=== PATIENT | male | born 1950 | race Caucasian/White ===

== ENCOUNTER 2017-01-14 05:44 | Inpatient (IN) | payer OTHER ==
[2017-01-14] MEDS ORDERED: morphINE PF 5 MG/10 ML INJ IT ONE (06:05)
[2017-01-14] MEDS ORDERED: GABAPENTIN 100 MG CAP PO ONE (06:05)
[2017-01-14] MEDS ORDERED: morphINE SR 15 MG TAB PO ONE (06:05)
[2017-01-14] MEDS ORDERED: ACETAMINOPHEN 500 MG TAB PO ONE (06:05)
[2017-01-14] MEDS ORDERED: ceFAZolin 2 GM/DEXTROSE 100 ML IV ONE (06:05)
[2017-01-14] MEDS ORDERED: LR 1,000 ML IV ONE (06:06)
[2017-01-14] MEDS ORDERED: LIDOCAINE 1% 2 ML INJ ID PRN (06:06)
--- NOTE | 2017-01-14 06:22 | PDHPUP ---
History & Physical Update H&P update statement: This history and physical update is based on an assessment of the patient which was completed after admission or registration (within 24 hours), but prior to the surgery/procedure. H&P update: H&P reviewed & patient examined, no change in patient's condition since H&P completed (Patient has been consented and his site marked for a posterior L4/5 laminectomy and TLIF/PSF. All questions answered.)
[2017-01-14] MEDS ORDERED: GABAPENTIN 300 MG CAP PO ONE (06:30)
[2017-01-14] MEDS ORDERED: BACITRACIN 50,000 UNITS/10 ML SYR IRR ONE (06:43)
[2017-01-14] MEDS ORDERED: CHLORHEXIDINE GLUC HIBICLENS 118 ML BTL TP ONE (06:43)
[2017-01-14] MEDS ORDERED: THROMBIN (BOVINE) 20,000 UNIT VIAL TP ONE ×2 (06:43→07:18)
[2017-01-14] MEDS ORDERED: BUPIVACAINE 0.25% 30 ML SDV ONE (06:43)
[2017-01-14] MEDS ORDERED: METOCLOPRAMIDE 10 MG/2 ML VIAL ONE (07:07)
[2017-01-14] MEDS ORDERED: ROCURONIUM 50 MG/5 ML VIAL ONE ×3 (07:07→08:28)
[2017-01-14] MEDS ORDERED: DEXAMETHASONE 4 MG/ML VIAL ONE ×2 (07:07)
[2017-01-14] MEDS ORDERED: PROPOFOL/EMULSION 500 MG/50 ML BOTTLE IV ONE ×2 (07:07→08:40)
[2017-01-14] MEDS ORDERED: MIDAZOLAM 2 MG/2 ML VIAL ONE (07:07)
[2017-01-14] MEDS ORDERED: PHENYLEPHRINE 10 MG/ML SDV ONE (07:07)
[2017-01-14] MEDS ORDERED: LIDOCAINE 2% 100 MG/5 ML SYR ONE (07:08)
--- NOTE | 2017-01-14 08:00 | PDANEPAE ---
ANE Past Medical History - Cardiovascular History Hx Hypertension: Yes Hx Arrhythmias: No Hx Chest Pain: No Hx Coronary Artery / Peripheral Vascular Disease: No Hx CHF / Valvular Disease: No Hx Palpitations: No Cardiovascular History Comment: pcp monitors bp meds. bp has been increasing recently with pain and back issues - Pulmonary History Hx COPD: No Hx Asthma/Reactive Airway Disease: No Hx Recent Upper Respiratory Infection: No Hx Oxygen in Use at Home: No Hx Sleep Apnea: Yes Sleep Apnea Screening Result - Last Documented: Positive Pulmonary History Comment: dana triggers - Neurologic History Hx Cerebrovascular Accident: No Hx Seizures: No Hx Dementia: No Neurologic History Comment: numbness to legs bilaterally- severe sciatic and nerve pain - Endocrine History Hx Diabetes: No - Renal History Hx Renal Disorders: No - Liver History Hx Hepatic Disorders: No - Neurological & Psychiatric Hx Hx Neurological and Psychiatric Disorders: Yes Neurological / Psychiatric History Comment: anxiety for years - Cancer History Hx Cancer: No - Congenital Disorder History Hx Congenital Disorders: No - GI History Hx Gastrointestinal Disorders: Yes Gastrointestinal History Comment: duodenum ulcer- no difficulties - Other Health History Other Health History: wears reading glasses - Chronic Pain History Chronic Pain: Yes (sciatic and nerve pain) - Surgical History Prior Surgeries: 10 or 15 yrs ago ruptured disc to back. bilateral elbow surgeries. knee surgeries. testicle removed at 12 yo d/t trauma. right shoulder surgery for dislocation and bicep tendon repair ANE Review of Systems - Exercise capacity METS (RN): 3 METS ANE Patient History - Allergies Allergies/Adverse Reactions: oxycodone Allergy (Verified 12/26/16 11:22) Itching - Home Medications Home Medications: Ascorbic Acid [Vitamin C 500 mg (*)] 1,000 mg PO DAILY 12/20/16 [Last Taken ] Atenolol [Tenormin 100 mg (*)] 100 mg PO HS 12/20/16 [Last Taken 01/13/17 21:30] Herbals/Supplements -Info Only 1 ea PO DAILY 12/20/16 [Last Taken 01/07/17] Ibuprofen [Motrin (*)] 400 mg PO Q4-6PRN PRN 12/20/16 [Last Taken 01/07/17] Primidone 100 mg PO DAILY 12/20/16 [Last Taken 01/13/17 05:00] Simvastatin 40 mg PO HS 12/20/16 [Last Taken 01/13/17 21:30] buPROPion SR [Wellbutrin 150mg SR (*)] 150 mg PO BID 12/20/16 [Last Taken 05:00] diphenhydrAMINE [Benadryl 50 MG (*)] 50 mg PO HS PRN 12/20/16 [Last Taken ] traMADol [Ultram 50 mg (*)] 50 - 100 mg PO Q4H PRN 12/20/16 [Last Taken 01/13/17 ] - NPO status NPO Since - Liquids (Date): 01/13/17 NPO Since - Liquids (Time): 18:00 NPO Since - Solids (Date): 01/13/17 NPO Since - Solids (Time): 18:00 - Smoking Hx Smoking Status: Former smoker - Family Anes Hx Family Hx Anesthesia Complications: none ANE Labs/Vital Signs - Vital Signs Blood Pressure: 162/88 Heart Rate: 52 Respiratory Rate: 16 O2 Sat (%): 97 Height: 180.34 cm Weight: 95.254 kg ANE Physical Exam - Airway Neck exam: spinal fusion Mallampati Score: Class 2 Mouth exam: normal dental/mouth exam - Pulmonary Pulmonary: no respiratory distress - Cardiovascular Cardiovascular: regular rate and rhythym - ASA Status ASA Status: II ANE Anesthesia Plan Anesthesia Plan: general endotracheal anesthesia Urgent/Emergent Case: Yulissa marcus completed preop but documented later for safe timely pt care
[2017-01-14] MEDS ORDERED: SUGAMMADEX SODIUM 200 MG/2 ML VIAL IVP ONE (08:40)
[2017-01-14] MEDS ORDERED: morphINE PF 5 MG/10 ML INJ ONE (08:58)
[2017-01-14] MEDS ORDERED: diphenhydrAMINE 50 MG CAP PO PRN (10:43)
[2017-01-14] MEDS ORDERED: POLYETHYLENE GLYCOL 3350 17 GM PKT PO PRN (10:44)
[2017-01-14] MEDS ORDERED: LACTULOSE 20 GM/30 ML UDCUP PO PRN (10:44)
[2017-01-14] MEDS ORDERED: MAGNESIUM HYDROXIDE 30 ML UDCUP PO PRN (10:44)
[2017-01-14] MEDS ORDERED: HYDROmorphONE/DILAUDID 1 MG/ML SYR IVP PRN (10:44)
[2017-01-14] MEDS ORDERED: BISACODYL 10 MG SUPP PR PRN (10:44)
[2017-01-14] MEDS ORDERED: ONDANSETRON 4 MG/2 ML VIAL IVP PRN ×2 (10:44→10:46)
[2017-01-14] MEDS ORDERED: diphenhydrAMINE 25 MG CAP PO PRN (10:44)
[2017-01-14] MEDS ORDERED: ONDANSETRON DISINTEGRATING 4 MG TAB PO PRN (10:44)
[2017-01-14] MEDS ORDERED: NALOXONE HCL 0.4 MG/ML INJ IVP PRN (10:46)
[2017-01-14] MEDS ORDERED: ACETAMINOPHEN 500 MG TAB PO PRN (10:46)
[2017-01-14] MEDS ORDERED: LR 500 ML IV PRN (10:46)
[2017-01-14] MEDS ORDERED: MEPERIDINE 25 MG/ML SYR IVP PRN (10:46)
[2017-01-14] MEDS ORDERED: ALBUTEROL 3 ML DEYVIAL IH PRN (10:46)
--- NOTE | 2017-01-14 10:47 | POSTANESTH ---
Post Anesthetic Evaluation Cardiovascular Status: Similar to Pre-Op Cond Respiratory Status: Similar to Pre-op Cond. Level of Consciousness/Mental Status: Can Participate in Eval Pain Control: Adequate, Prn Tx Ordered Nausea/Vomiting Control: Adequate, Prn Tx Ordered Complications Possibly Related to Anesthesia: None Noted
--- NOTE | 2017-01-14 10:55 | POSTOPPROG ---
Post Op Note Date of Operation: 01/14/17 Surgeon: Juan Carlos Reyes Track Announcer: Karri Polanco PA-C Anesthesiologist: Artur Anesthesia: GET(General Endotracheal) Pre-op Diagnosis: lumbar degenerative disc disease, radiculopathy, stenosis Post-op Diagnosis: same Indication: pain, spinal cord compression Procedure: L45 laminectomy, TLIF, bilateral foraminotomies, PSF Findings: Please see dictation Inf/Abcess present in the surg proc area at time of surgery?: No Depth: Organ Space EBL: 50-100 Complications: none Drains: Arslan Solis Specimen(s): none PA Addendum - Addendum .: S: Pt in PACU, states back is uncomfortable. Denies leg pain. O: AAOx3 NAD VSS MAEx4 Motor 5/5 BUE/BLE +LT Incision dressed JPx1 Stanford in A: 67 yo M s/p L45 laminectomy, bilateral foraminotomies, TLIF, PSF P: PT/OT Brace when OOB TEDs, SCDs, lovenox POD#1 Pain management Post op xrays pending Call NS with any issues D/w Dr Reyes
[2017-01-14] MEDS ORDERED: fentaNYL 100 MCG/2 ML INJ ONE (11:41)
[2017-01-14] MEDS: fentaNYL 100 MCG/2 ML INJ IVP PRN ×2 (11:43→12:06)
--- NOTE | 2017-01-14 13:57 | GOP ---
[f rep st] OPERATIVE REPORT DATE OF OPERATION: 01/14/2017 SURGEON: Juan Carlos Reyes MD JEWELRY DRILLING MACHINE OPERATOR: Lizbeth Polanco PA-C. ANESTHESIA: General. PREOPERATIVE DIAGNOSIS: 1. L4-L5 spinal stenosis with spondylosis and bilateral recess and foraminal stenosis. 2. Low back pain and lower extremity radiculopathy. 3. Treatment refractory to medical management. POSTOPERATIVE DIAGNOSIS: 1. L4-L5 spinal stenosis with spondylosis and bilateral recess and foraminal stenosis. 2. Low back pain and lower extremity radiculopathy. 3. Treatment refractory medial management. PROCEDURE PERFORMED: 1. Posterior arthrodesis with approach to L4-L5. 2. Posterolateral fusion with bilateral pedicle screw placement at L4 and L5 from the [employer] 4.75 Solera system. 3. Posterolateral fusion on the left with morselized autograft and allograft. 4. Decompressive laminectomy, L4-L5, with bilateral medial facetectomies and foraminotomies. 5. Right-sided L4-L5 transforaminal lumbar interbody fusion with a 9 x 28 mm titanium PEEK Elevate cage filled with morselized autograft and allograft. 6. Use of intraoperative 3D Stealth navigation. 7. Use of intraoperative fluoroscopy, less than 1 hour physician time. 8. Use of neuromonitoring. 9. Use of operating microscope. 10. Injection of preservative-free intrathecal narcotics. FINDINGS: per imaging SPECIMENS: None. ESTIMATED BLOOD LOSS: 100 mL. INDICATIONS: The patient is a 67-year-old gentleman who unfortunately has been suffering from bilateral lower extremity claudication and radiculopathy. He had evidence of severe spinal stenosis L4-5 with bilateral lateral recess and foraminal stenosis. After failing nonoperative interventions, and after discussion of risks, benefits, and treatment alternatives, we decided to proceed forth with surgery as described above. DESCRIPTION OF PROCEDURE: Patient was brought to the operating theater and underwent general endotracheal anesthesia without complication. He had Venodynes, TAMMIE hose and the appropriate lines placed by Anesthesia. He was flipped prone onto the Arslan table and all bony prominences inspected and padded. The lower lumbar region was prepped and draped in the usual sterile surgical fashion. A time-out was completed per protocol and the patient received antibiotics within 1 hour of incision. Using lateral fluoroscopy and a spinal needle, we picked our entry point to the L4-L5 level. This was marked in the midline and the incision then infiltrated with Marcaine with epinephrine. The incision was taken down initially with the scalpel blade, and then using the monopolar taken down the midline through the lumbodorsal fascia, and a subperiosteal dissection carried out to the transverse processes of L4 and L5 bilaterally. Deep retractors were placed to maintain our exposure. We attached the 3D Stealth navigation clamp to the spinous process of L5 and completed a 3D Stealth navigation spin. Using 3D Stealth navigation, we placed the commercial airline pilot holes for the bilateral pedicle screws at L4 and L5. All holes were manually palpated with no evidence of any cortical breaches. We then tapped and placed 6.5 x 50 mm screws bilaterally into L4 and L5 from the Alaris Royaltyra system. Another 3D Stealth navigation spin demonstrated good placement of the hardware. At this point, the microscope was brought into the field to assist with microscopic dissection and to maintain illumination and magnification. Using a combination of the bur tip on the drill, Kerrison punches, and a Leksell rongeur , we completed a decompressive laminectomy at L4-L5, with bilateral foraminotomies L4-5. We resected the pars on the right side between L4-5 and distracted the interspace. We completed a right-sided L4-5 diskectomy and prepared the cartilaginous endplates. We measured the interbody space and placed a 9 x 28 mm titanium Peek Elevate cage filled with morselized autograft and allograft anteriorly toward the midline. We packed additional morcellized autograft in the disk space interbody fusion. We let down the distraction and decorticated the bone on the left side between L4-5. We placed 2 lordotic rods into the heads of the screws between L4-5 and secured them down with cap screws , which were then tightened per the automation qa tester's setting. We irrigated the wound copiously with bacitracin irrigation, placed morselized autograft and allograft on the left side between L4-5 for the posterolateral fusion. We injected preservative-free intrathecal narcotics and placed a drain in the subfascial space. The wound was then closed in multiple layers using Vicryl sutures in the deep layers and Dermabond for the skin. The patient's wounds were dressed sterilely. He was then flipped supine onto the transport cart, where he was awakened, extubated, and taken to the recovery room in stable condition. There were no complications and no noted changes on neuromonitoring throughout the procedure. COMPLICATIONS: None. /[id number]/MODL MTDD
[2017-01-14] MEDS: NS 1,000 ML IV SCH (14:31)
[2017-01-14] MEDS: ACETAMINOPHEN 500 MG TAB PO SCH ×2 (14:32→20:48)
[2017-01-14] MEDS: ceFAZolin 2 GM/DEXTROSE 100 ML IV SCH ×2 (14:33→23:19)
--- NOTE | 2017-01-14 15:01 | ASMTCASEMG ---
Living Arrangements What is your living arrangement? Who do you live Answers: With Spouse with? Type Of Residence What kind of residence do you live in? Answers: House Stairs in Home Environment Answers: Yes Discharge Plan Comments Coordination Status Comments Notes: Pt is s/p lumbar surgery for spinal stenosis. Hx Depression. PT/OT pending. CM will follow for any d/c needs. Date Signed: 01/14/2017 03:00 PM Electronically Signed By:Germania Muller
[2017-01-14] MEDS: FAMOTIDINE 20 MG TAB PO SCH (20:48)
[2017-01-14] MEDS: ATENOLOL 100 MG TAB PO SCH (20:48)
[2017-01-14] MEDS: buPROPion SR 150 MG TAB PO SCH (20:48)
[2017-01-14] MEDS: ATORVASTATIN CALCIUM 20 MG TAB PO SCH (20:48)
[2017-01-14] MEDS: SENNOSIDES/DOCUSATE SODIUM TAB PO SCH (20:48)
[2017-01-14] MEDS ORDERED: SIMVASTATIN 40 MG PO SCH (21:00)
[2017-01-15] MEDS: NS 1,000 ML IV SCH (05:00)
[2017-01-15] MEDS: ACETAMINOPHEN 500 MG TAB PO SCH ×3 (05:00→20:38)
--- NOTE | 2017-01-15 07:06 | NEUSURGPN ---
Date of Surgery: 01/14/17 Post Op Day: 1 Assessment/Plan: 67 yo male s/p TLIF at L4/5 - neuro stable - pain control - PT/OT - wear brace when out of bed - postop L-spine x-rays pending - DALILA drain x 1, will likely remove tomorrow - Dispo: home tomorrow if continues to progress well Subjective: Right thigh numbness improved compared to prior to surgery. Having localized back pain. Objective: Awake. Alert. Muscle strength full at 5/5 Sensation intact Catheter Insertion Date: 01/14/17 - Physician Discussed Patient with : Eric Neurosurgery Physical Exam - Vitals, I&O, Labs I and O 01/14/17 01/15/17 01/16/17 05:59 05:59 05:59 Intake Total 3952 Output Total 4125 Balance -173 Weight 95.254 kg Intake: Oral (ml) 1170 IV Intake (ml) 1570 IV Infused (ml) 1212 Ns 1,000 ml @ 75 mls/hr 1002 IV CONT MAGDI Rx#: [id number] ceFAZolin 2 GM/DEXTROSE 210 100 ml @ 200 mls/hr IV Q8H MAGDI Rx#:[id number] Output: Urine (ml) 3800 Catheter 3800 Estimated Blood Loss (ml) 100 DALILA Drain Output (ml) 225 Left Back 100 Posterior Back 125 Other: Intake Quantity Yes Sufficient Number of Voids Catheter 1 Vital Signs Temp Pulse Resp BP Pulse Ox 36.6 C 53 L 16 122/61 H 93 01/15/17 04:00 01/15/17 04:00 01/15/17 04:00 01/15/17 04:00 01/15/17 04:00 ICD10 Worksheet Patient Problems: Problems Problem Status Onset Lumbar spondylosis Acute - ICD10 Problem Qualifiers (1) Lumbar spondylosis
[2017-01-15] MEDS: ASCORBIC ACID 500 MG TAB PO SCH (08:51)
[2017-01-15] MEDS: PRIMIDONE 50 MG TAB PO SCH (08:51)
[2017-01-15] MEDS: buPROPion SR 150 MG TAB PO SCH ×2 (08:51→20:38)
[2017-01-15] MEDS: SENNOSIDES/DOCUSATE SODIUM TAB PO SCH ×2 (08:51→20:38)
[2017-01-15] MEDS: FAMOTIDINE 20 MG TAB PO SCH ×2 (08:51→20:38)
[2017-01-15] MEDS: ENOXAPARIN 40 MG/0.4 ML SYR SC SCH (08:52)
--- NOTE | 2017-01-15 14:21 | ASMTCMCOM ---
CM Note CM Note Notes: PT rec outpat, OT rec home. Anticipate pt will d/c when medically stable. CM available for changes/ needs. Date Signed: 01/15/2017 02:21 PM Electronically Signed By:Rhonda Carmichael
[2017-01-15] MEDS: HYDROCODONE/APAP 5/325 TAB PO PRN (17:58)
[2017-01-15] MEDS: METHOCARBAMOL 750 MG TAB PO PRN (20:38)
[2017-01-15] MEDS: ATORVASTATIN CALCIUM 20 MG TAB PO SCH (20:38)
[2017-01-15] MEDS: ATENOLOL 100 MG TAB PO SCH (20:38)
[2017-01-16] MEDS: traMADol 50 MG TAB PO PRN ×3 (04:20→16:47)
[2017-01-16] MEDS: METHOCARBAMOL 750 MG TAB PO PRN ×2 (04:20→09:13)
[2017-01-16] MEDS: ACETAMINOPHEN 500 MG TAB PO SCH ×2 (05:51→13:33)
--- NOTE | 2017-01-16 07:36 | NEUSURGPN ---
Assessment/Plan: 67 yo male s/p TLIF at L4/5 POD#2 - neuro stable - pain control - PT/OT - wear brace when out of bed - postop L-spine x-rays show stable hardware - DALILA drain x 1, will remove today at noon - Dispo: home later today if continues to progress well Subjective: Pt resting in bed, had bad pain overnight but now improved Objective: AAOx3 NAD VSS MAEx4 Motor 5/5 BLE JPx1 +LT Urinary Catheter in Place: No Catheter Insertion Date: 01/14/17 - Physician Discussed Patient with : Eric Neurosurgery Physical Exam - Vitals, I&O, Labs I and O 01/15/17 01/16/17 01/17/17 05:59 05:59 05:59 Intake Total 3952 1436 Output Total 4125 135 Balance -173 1301 Weight 95.254 kg Intake: Oral (ml) 1170 1050 IV Intake (ml) 1570 IV Infused (ml) 1212 386 Ns 1,000 ml @ 75 mls/hr 1002 286 IV CONT MAGDI Rx#: [id number] ceFAZolin 2 GM/DEXTROSE 210 100 100 ml @ 200 mls/hr IV Q8H MAGDI Rx#:[id number] Output: Urine (ml) 3800 Catheter 3800 Estimated Blood Loss (ml) 100 DALILA Drain Output (ml) 225 135 Left Back 100 135 Posterior Back 125 Other: Intake Quantity Yes Yes Sufficient Number of Voids Catheter 1 Toilet 4 Vital Signs Temp Pulse Resp BP Pulse Ox 36.8 C 56 L 18 163/90 H 93 01/16/17 04:00 01/16/17 04:00 01/16/17 04:00 01/16/17 04:00 01/16/17 04:00 ICD10 Worksheet Patient Problems: Problems Problem Status Onset Lumbar spondylosis Acute
[2017-01-16] MEDS: ASCORBIC ACID 500 MG TAB PO SCH (09:02)
[2017-01-16] MEDS: ENOXAPARIN 40 MG/0.4 ML SYR SC SCH (09:02)
[2017-01-16] MEDS: PRIMIDONE 50 MG TAB PO SCH (09:03)
[2017-01-16] MEDS: SENNOSIDES/DOCUSATE SODIUM TAB PO SCH (09:04)
[2017-01-16] MEDS: buPROPion SR 150 MG TAB PO SCH (09:04)
[2017-01-16] MEDS: FAMOTIDINE 20 MG TAB PO SCH (09:05)
[2017-01-16] MEDS: HYDROCODONE/APAP 5/325 TAB PO PRN (10:09)
[2017-01-16 15:30] VITALS: BP 162/82; PULSE 63; RESP 18; TEMP 97.6; O2SAT 96
== END 2017-01-16 17:27 | disposition home or self-care (01) | DRG 460 ==
LOC: F3N 05:44
PROVIDERS: ADMIT Neurological Surgery; ATTEND Neurological Surgery
DX: M51.36 Other intervertebral disc degeneration, lumbar region (principal); M47.26 Other spondylosis with radiculopathy, lumbar region; M48.06 Spinal stenosis, lumbar region; I10 Essential (primary) hypertension; Z87.891 Personal history of nicotine dependence
CPT/HCPCS: 97116-GP; 97161-GP; 97165-GO; 97530-GP; 97535-GO; C1713; G8978-GP-CI; G8979-GP-CI; G8980-GP-CI; G8987-GO-CI; G8987-GO-CJ; G8988-GO-CI; G8989-GO-CI; J0171; J0690; J1100; J1650; J2001; J2250; J2274; J2370; J2704; J2765; J3010

== ENCOUNTER 2017-01-17 21:23 | Observation (INO) | payer OTHER ==
[2017-01-17] MEDS ORDERED: HYDROmorphONE/DILAUDID 1 MG/ML SYR IVP ONE (21:31)
[2017-01-17] MEDS ORDERED: DIAZEPAM 10 MG/2 ML SYR IVP ONE (22:40)
[2017-01-18] MEDS ORDERED: ONDANSETRON DISINTEGRATING 4 MG TAB PO PRN (00:58)
[2017-01-18] MEDS ORDERED: ACETAMINOPHEN 325 MG TAB PO PRN (00:58)
[2017-01-18] MEDS ORDERED: LORazepam 2 MG/ML INJ IVP PRN (00:58)
[2017-01-18] MEDS ORDERED: ONDANSETRON 4 MG/2 ML VIAL IVP PRN (00:58)
--- NOTE | 2017-01-18 01:15 | EDPHY ---
H & P Stated Complaint: back pain Time Seen by Provider: 01/17/17 21:30 HPI/ROS: Chief complaint: Back pain History of present illness: This is a 67-year-old male who presents to the emergency department by EMS for evaluation of back pain. Patient underwent an L4-L5 fusion on Friday of this last week, approximately 5 days ago. He was discharged from hospital on of this last week, approximately 2 days ago. He has been doing well at home until today when pain started to worsen. He did consult with his neurosurgical group he was switched from tramadol and Frederick to tramadol and hydromorphone. However pain has worsened to the point that he cannot move. Pain does radiate down the right leg. He denies other associated signs or symptoms including no fevers, no new trauma, no bowel or bladder dysfunction. Review of systems: A 10 point review of systems was obtained and other than described above was negative - Personal History Current Tetanus/Diphtheria Vaccine: Unsure - Medical/Surgical History Hx Asthma: No Hx Chronic Respiratory Disease: No Hx Diabetes: No Hx Cardiac Disease: Yes Hx Renal Disease: No Hx Cirrhosis: No Hx Alcoholism: No Hx HIV/AIDS: No Hx Splenectomy or Spleen Trauma: No Other PMH: familial tremors, cervical fusion, 2 shoulder surgeries (r), bilateral elbow surgeries, (r) knee 3 surgeries, HTN, hyperlipidemia, degenerative joint disease, depression - Social History Smoking Status: Former smoker - Physical Exam Exam: General Appearance: Alert, appears unwell. Eyes: Pupils equal and round no pallor or injection. ENT, Mouth: Mucous membranes moist. Respiratory: There are no retractions, lungs are clear to auscultation. Cardiovascular: Regular rate and rhythm. Gastrointestinal: Abdomen is soft and non tender, no masses, bowel sounds normal. Neurological: Alert and oriented x4. Strength and sensation intact and symmetrical. Skin: Warm and dry, no rashes. Musculoskeletal: Neck is supple non tender. Extremities are symmetrical, full range of motion. Psychiatric: Patient is oriented X 3, there is no agitation. Constitutional: Initial Vital Signs Temperature (C) 36.7 C 01/17/17 21:32 Heart Rate 72 01/17/17 21:32 Respiratory Rate 18 01/17/17 21:32 O2 Sat (%) 86 L 01/17/17 21:32 O2 Delivery Mode Room Air Allergies/Adverse Reactions: oxycodone Allergy (Verified 01/17/17 21:34) Itching Home Medications: Medication Instructions Recorded Ascorbic Acid [Vitamin C 500 mg 1,000 mg PO DAILY 12/20/16 (*)] Atenolol [Tenormin 100 mg (*)] 100 mg PO HS 12/20/16 Primidone 100 mg PO DAILY 12/20/16 Simvastatin 40 mg PO HS 12/20/16 buPROPion SR [Wellbutrin 150mg SR 150 mg PO BID 12/20/16 (*)] diphenhydrAMINE [Benadryl 50 MG 50 mg PO HS PRN 12/20/16 (*)] Hydrocodone/APAP 5/325 [Frederick 1 - 2 tab PO Q4HRS PRN #90 tab 01/16/17 5/325 (*)] Methocarbamol [Robaxin 750 mg (*)] 750 mg PO QID PRN #60 tab 01/16/17 traMADol [Ultram 50 mg (*)] 50 - 100 mg PO Q4H PRN #90 tab 01/16/17 Medical Decision Making ED Course/Re-evaluation: Patient seen under the supervision of my secondary supervising physician Dr. Miguel Deluca. Patient presents to the emergency department for low back pain after undergoing an L4-L5 fusion approximately 5 days ago. He is having worsening pain at home not controlled on oral pain medicines. Attempts at treating with IV narcotics and benzodiazepines in the emergency room provide minimal relief and he does desaturate with them. I have consulted with his neurosurgical group, Dr. Lambert Scott and his PA. He does not recommend imaging studies. At this time we should only pursue pain management. Patient is admitted to the hospitalist service for pain management. Neurosurgical group will follow along. Differential Diagnosis: Included but not limited to pain post surgery, postop complications including abnormal bleeding, hematoma, abscess formation - Data Points Medications Given: Discontinued Medications Diazepam (Valium Injection) 5 mg IVP EDNOW ONE Stop: 01/17/17 22:41 Last Admin: 01/17/17 22:52 Dose: 5 mg Hydromorphone HCl (Dilaudid) 1 mg IVP EDNOW ONE Stop: 01/17/17 21:32 Last Admin: 01/17/17 21:36 Dose: 1 mg Departure - Departure Disposition: [facility] Inpatient Acute Clinical Impression: Back pain Qualifiers: Back pain location: low back pain Chronicity: acute Back pain laterality: bilateral Sciatica presence: with sciatica Sciatica laterality: sciatica of right side Qualified Code(s): M54.41 - Lumbago with sciatica, right side Condition: Fair
[2017-01-18] MEDS: HYDROmorphONE/DILAUDID 2 MG TAB PO PRN ×6 (01:31→23:02)
[2017-01-18] MEDS: HYDROmorphONE/DILAUDID 1 MG/ML SYR IVP PRN ×4 (01:31→19:52)
--- NOTE | 2017-01-18 05:03 | PDGENHP ---
History and Physical - Chief Complaint Back pain - History of Present Illness 67 yo M with OA and distant hx of blood clots readmitted with uncontrolled back pain after recent back surgery. Patient underwent L4/5 TLIF on 01/14. His post- op course was uncomplicated and he was discharged on 01/16. Less than 24 hours after his arrival at home, he began to experience severe, unrelenting pain involving his hamstrings and buttocks bilaterally. He denies win numbness or weakness. He attempted oral dilaudid, tramadol, and methocarbamol at home with little relief, so he came in to the ED. History Information - Allergies/Home Medication List Allergies/Adverse Reactions: oxycodone Allergy (Verified 01/17/17 21:34) Itching Home Medications: Ascorbic Acid [Vitamin C 500 mg (*)] 1,000 mg PO DAILY 12/20/16 [Last Taken ] Atenolol [Tenormin 100 mg (*)] 100 mg PO HS 12/20/16 [Last Taken 01/13/17 21:30] Primidone 100 mg PO DAILY 12/20/16 [Last Taken 01/13/17 05:00] Simvastatin 40 mg PO HS 12/20/16 [Last Taken 01/13/17 21:30] buPROPion SR [Wellbutrin 150mg SR (*)] 150 mg PO BID 12/20/16 [Last Taken 05:00] diphenhydrAMINE [Benadryl 50 MG (*)] 50 mg PO HS PRN 12/20/16 [Last Taken ] I have personally reviewed and updated: family history, medical history - Past Medical History DVT - Surgical History Reports: spinal surgery - Family History Positive for: CAD Additional family history: DJD - Social History Smoking Status: Former smoker Drug Use: None Review of Systems ROS: 10pt was reviewed & negative except for what was stated in HPI & below Physical Exam Temp Pulse Resp BP Pulse Ox 37.4 C 63 16 200/86 H 94 01/18/17 01:19 01/18/17 01:19 01/18/17 01:19 01/18/17 01:19 01/18/17 01:19 O2 (L/minute) 2 Constitutional: appears nourished, uncomfortable Eyes: PERRL, EOMI Ears, Nose, Mouth, Throat: moist mucous membranes, no oral mucosal ulcers Cardiovascular: regular rate and rhythym, no murmur, rub, or gallop Respiratory: no respiratory distress, clear to auscultation Gastrointestinal: normoactive bowel sounds, soft, non-tender abdomen Neurologic: AAOx3, sensation intact bilaterally, CN II-XII Intact, other (LE strength examination limited by pain, but able to maintain leg lift bilaterally against gravity) Psychiatric: interacting appropriately, not anxious Assessment & Plan Assessment: 67 yo M w/ L4/5 TLIF on 01/14 readmitted with uncontrolled back pain. Plan: 1. Uncontrolled pain - In the setting of L4/5 TLIF on 01/14. Post-operative course was uncomplicated. Discussed case with ED physician Dr. Huitron, who discussed case with Neurosurgery. Neurosurgery requested no additional imaging and recommended admission for pain control. - Dilaudid 4 mg PO q3h PRN, Dilaudid 0.2-0.4 mg q2h; titrate as necessary with low threshold for ALTERATIONS SUPERVISOR - Neurosurgery will see patient in the morning 2. 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 He was on warfarin for some period of time for this but is no longer on any anticoagulation. Diet - Regular Code - Full Ppx - LMWH Dispo - Admit to observation for pain control
[2017-01-18 05:41] LABS: % IMMATURE GRANULYOCYTES 0.4 % (0.0-1.1); ABSOLUTE IMMATURE GRANULOCYTES 0.04 10^3/uL (0.00-0.10); ADD DIFF? NO; ADD MORPH? NO; ADD SCAN? NO; ATYPICAL LYMPHOCYTE FLAG 0 (0-99); FRAGMENT RBC FLAG 0 (0-99); HEMOGLOBIN 11.8 g/dL (13.7-17.5); LEFT SHIFT FLG 0 (0-99); LIPEMIA HEMOLYSIS FLAG 80 (0-99); MEAN CELL HEMOGLOBIN 31.3 pg (27.9-34.1); MEAN CELL HEMOGLOBIN CONCENTR. 33.7 g/dL (32.4-36.7); MEAN CELL VOLUME 92.8 fL (81.5-99.8); MEAN PLATELET VOLUME 10.7 fL (8.7-11.7); PLATELET CLUMPS FLAG 0 (0-99); PLATELET COUNT 201 10^3/uL (150-400); RED BLOOD CELL COUNT 3.77 10^6/uL (4.40-6.38); RED CELL DISTRIBUTION WIDTH 12.4 % (11.5-15.2)
[2017-01-18 05:55] LABS: ANION GAP 12 mEq/L (8-16); CALCIUM 9.1 mg/dL (8.5-10.4); CARBON DIOXIDE 25 mEq/l (22-31); CHLORIDE 99 mEq/L (97-110); CREATININE 0.7 mg/dL (0.7-1.3); GLOMERULAR FILTRATION RATE > 60; GLUCOSE 96 mg/dL (70-100); POTASSIUM 4.3 mEq/L (3.5-5.2); SODIUM 136 mEq/L (134-144)
[2017-01-18] MEDS: ENOXAPARIN 40 MG/0.4 ML SYR SC SCH (08:19)
--- NOTE | 2017-01-18 11:26 | SOAPPROG ---
Downtime Inpatient Late Entry SOAP Note: Mr Leiva has severe back and buttock inguinal pain but excellent leg strength and no loss of sensation. The got acutely worse at home and he was admitted overnight for pain control. This is not unusual for someone with a lumbar fusion. He needs pain medication adjustment and time. We appreciate the help of our hospitalists service who admitted OUR patient last night while we were involved on a emergent traumatic surgery at another hospital. We will continue to follow Mr. Leiva and I suspect he could likely go home tmrw if he does well after adjusting his pain medications. Teresa Scott MD
[2017-01-18] MEDS ORDERED: diphenhydrAMINE 50 MG CAP PO PRN (11:54)
[2017-01-18 12:11] VITALS: RESP 16
--- NOTE | 2017-01-18 12:17 | GCON ---
[f rep st] CONSULTATION NEUROSURGICAL CONSULTATION. DATE OF CONSULTATION: 01/18/2017 REASON FOR CONSULTATION: Unrelenting postoperative low back pain. HISTORY OF PRESENT ILLNESS: The patient is a middle-aged gentleman, who underwent an uncomplicated L4-5 TLIF by my partner, Dr. Reyes, on January 14. He did well, and was discharged home on postop erative day #2, January 16, and made it at home for about 24 hours, and yesterday began to experien ce just unrelenting severe pain in the low back and buttocks bilaterally. There were occasional twi nges down the right leg, but he had no sensory loss or motor loss in his lower extremities. The angel n was unrelenting, despite his attempts to control it at home with Dilaudid, tramadol, and methocarb ivan. He came into the emergency room here at [facility] yesterday, and then attempted to ge t his pain under control with IV medications, and discharge him home. Unfortunately, the pain was u nrelenting and he had to be admitted. He was admitted last night, to the hospitalist service here, to help with his pain control, and he is doing somewhat better today with their help. He denies any weakness in his legs, and has had no fevers or chills, or any other complaints associated with infe ction. PAST MEDICAL HISTORY: Includes lipid abnormality of the blood, and DVT. PAST SURGICAL HISTORY: Includes his spinal surgeries. FAMILY HISTORY: Significant for coronary artery disease. ALLERGIES: Oxycodone, which causes itching. MEDICATIONS: At home he takes atenolol, primidone, simvastatin, bupropion, and Benadryl as needed. He also takes vitamin C, as well as the pain medications. SOCIAL HISTORY: He was a former smoker but no longer is smoking. PHYSICAL EXAM: VITAL SIGNS: His blood pressure this morning is 171/76, heart rate is 61, respirato ry rate 18, saturation 94% on room air. His temperature is 36.9. BACK: His incision was clean, dry, and intact. There was no evidence of leakage from the incision. EXTREMITIES: His lower extremity strength is 5/5 in the tibialis anterior and plantar flexors, and sensation is intact. ASSESSMENT: The patient has had some difficulty with postoperative low back pain, which is not unco mmon following an L4-5 transforaminal lumbar interbody fusion. PLAN: We will adjust his pain medications and try to find a regimen that works best for him. He wi ll likely require another night's stay in the hospital until this can be accomplished. We appreciat e so much the help of the Medicine Service, and would be happy to accept the patient in transfer ont o the Neurosurgery Service as needed, but we do welcome their input in managing his perioperative pa in. /[id number]/MODL
[2017-01-18] MEDS ORDERED: NS 1,000 ML IV ONE (13:29)
[2017-01-18] MEDS ORDERED: PROMETHAZINE HCL 25 MG/ML INJ IVP ONE (13:29)
--- NOTE | 2017-01-18 13:32 | HOSPPROG ---
Hospitalist Progress Note Assessment/Plan: # uncontrolled pain post-op from TLIF 01/14 - cont dilaudid IV and PO; schedule apap; add valium for muscle relaxant effects - Dr Scott involved and agrees # headache - neuro intact, doubt bleed - will give IVF and phenergan, follow closely # anemia 35 mins of direct face to face patient care Subjective: pain 12/26 (was 04/27); ongoing SALAZAR Objective: Vital Signs Temp Pulse Resp BP Pulse Ox 37.0 C 57 L 16 144/82 H 93 01/18/17 12:00 01/18/17 12:00 01/18/17 12:00 01/18/17 12:00 01/18/17 12:00 Laboratory Results 01/18/17 05:05 01/18/17 05:05 01/17/17 01/18/17 01/19/17 05:59 05:59 05:59 Intake Total 200 Output Total 350 Balance -150 - Physical Exam Constitutional: uncomfortable Neurologic: AAOx3, other (strength intact UE/LE) ICD10 Worksheet Patient Problems: Problems Problem Status Onset Lumbar spondylosis Acute Back pain Acute
[2017-01-18] MEDS: ACETAMINOPHEN 500 MG TAB PO SCH ×2 (14:03→21:53)
[2017-01-18] MEDS: DIAZEPAM 5 MG TAB PO PRN ×2 (14:03→21:53)
[2017-01-18] MEDS: buPROPion SR 150 MG TAB PO SCH ×2 (14:36→20:03)
[2017-01-18] MEDS: PRIMIDONE 50 MG TAB PO SCH (15:52)
[2017-01-18] MEDS ORDERED: ACETAMINOPHEN 325 MG TAB PO SCH (16:00)
[2017-01-18] MEDS ORDERED: ATORVASTATIN CALCIUM 20 MG TAB PO SCH (21:00)
[2017-01-18] MEDS ORDERED: buPROPion SR 150 MG TAB PO SCH (21:00)
[2017-01-18] MEDS ORDERED: ATENOLOL 100 MG TAB PO SCH (21:00)
[2017-01-18] MEDS ORDERED: NON-FORMULARY NEW DRUG (Simvastatin [Simvastatin] 40 MG) PO SCH (21:00)
[2017-01-19] MEDS: HYDROmorphONE/DILAUDID 2 MG TAB PO PRN ×5 (02:17→14:31)
[2017-01-19] MEDS: PRIMIDONE 50 MG TAB PO SCH (08:27)
[2017-01-19] MEDS: ENOXAPARIN 40 MG/0.4 ML SYR SC SCH (08:27)
[2017-01-19] MEDS: buPROPion SR 150 MG TAB PO SCH (08:27)
[2017-01-19] MEDS: ACETAMINOPHEN 500 MG TAB PO SCH ×2 (08:27→14:32)
[2017-01-19] MEDS: DIAZEPAM 5 MG TAB PO PRN ×2 (08:27→14:31)
[2017-01-19 08:36] VITALS: BP 144/68; PULSE 60; TEMP 97.9; O2SAT 95
[2017-01-19] MEDS ORDERED: PRIMIDONE 50 MG TAB PO SCH (09:00)
--- NOTE | 2017-01-19 09:29 | ASMTCMCOM ---
CM Note CM Note Notes: Pt admitted for pain control following L4/5 TLIF on 01/14. Anticipate pt will have no DC needs. C/M available if needs change. Date Signed: 01/19/2017 09:29 AM Electronically Signed By:Sylwia Perez
--- NOTE | 2017-01-19 12:02 | SOAPPROG ---
NICKO Progress Note Assessment/Plan: Assessment: Pain is better controlled today than yesterday. It is unclear whether orals alone will hold his pain at bay or not. From our perspective he can leave when we find a pain regimen that works for him. Plan: 01/19/17 12:01 Subjective: Improved today compared with yesterday Objective: Vital Signs Temp Pulse Resp BP Pulse Ox 36.6 C 60 16 144/68 H 95 01/19/17 08:00 01/19/17 08:00 01/19/17 08:00 01/19/17 08:00 01/19/17 08:00 Laboratory Results 01/18/17 05:05 01/18/17 05:05 01/18/17 01/19/17 01/20/17 05:59 05:59 05:59 Intake Total 200 300 Output Total 350 Balance -150 300 MAEW ICD10 Worksheet Patient Problems: Problems Problem Status Onset Back pain Acute Lumbar spondylosis Acute
--- NOTE | 2017-01-19 18:14 | GDS ---
[f rep st] DISCHARGE SUMMARY ALL DIAGNOSES: 1. Uncontrolled pain. 2. L4-5 transforaminal lumbar interbody fusion (TLIF) on 01/14. 3. Anemia. HOSPITAL COURSE: This is a 67-year-old man who had a TLIF done on 01/[address] Reyes. His course was unremarkable. He was discharged home. He had uncontrolled pain about 2 days after his discharg e. He was thus readmitted. He has been seen by Dr. Scott as an inpatient. His pain was initially controlled on IV and oral narcotics. On discharge, he will be discharged on Dilaudid 4 mg every 3 hours as needed, Tylenol 1 g t.i.d. scheduled, tramadol 50 mg every 6 hours as needed and Valium 5 m g every 6 hours as needed. He had an additional prescription for V[place] which he requested that we d ispose of. This was given to pharmacy to do this by RN Wilfredo. I have requested that his RN go thro ugh all of his discharge medications with his present as he is slightly confused given the narc otics and Valium. His will monitor him closely at home. I have apprised him that these medica tions can cause serious respiratory distress and gone over those risks with him. He will be discharged in stable condition. He should follow up with Dr. Reyes. /[id number]/MODL
== END 2017-01-19 17:06 | disposition home or self-care (01) ==
LOC: EDUNIT# → F3N 01-18 01:09
PROVIDERS: ADMIT Student in an Organized Health Care Education/Training Program; ATTEND Student in an Organized Health Care Education/Training Program
DX: G89.18 Other acute postprocedural pain (principal); Z98.1 Arthrodesis status; R51 Headache; D64.9 Anemia, unspecified
CPT/HCPCS: 96374; 96375; 97166; 99285; G0378; G8987; G8988; G8989; J1170; J1650; J2060; J2405; J2550

== ENCOUNTER 2017-01-25 23:36 | Emergency (ER) | payer OTHER ==
--- NOTE | 2017-01-26 00:12 | EDPHY ---
H & P Stated Complaint: hiccups since back surgery, sternum spasm - Personal History Current Tetanus Diphtheria and Acellular Pertussis (TDAP): Yes - Medical/Surgical History Hx Asthma: No Hx Chronic Respiratory Disease: No Hx Diabetes: No Hx Cardiac Disease: Yes Hx Renal Disease: No Hx Cirrhosis: No Hx Alcoholism: No Hx HIV/AIDS: No Hx Splenectomy or Spleen Trauma: No Other PMH: familial tremors, cervical fusion, 2 shoulder surgeries (r), bilateral elbow surgeries, (r) knee 3 surgeries, HTN, hyperlipidemia, degenerative joint disease, depression - Social History Smoking Status: Former smoker Time Seen by Provider: 01/25/17 23:56 HPI/ROS: Chief complaint: Hiccups History of present illness: 67-year-old male with a recent medical history of an L4-L5 fusion and subsequent readmission to the hospital for pain control now presents with intractable hiccups. He states he has had hiccups for number of days. The hiccups have been progressively worsening. He cannot control them. They are causing his muscle spasm and causing pain. He denies precipitating factors. He denies other associated signs or symptoms: No fevers, no cough, trouble breathing or chest pain. Review of systems: A 10 point review of systems was obtained and other than described above was negative (Lico White) - Physical Exam Exam: General Appearance: Alert, nontoxic. Eyes: Pupils equal and round no pallor or injection. ENT, Mouth: Mucous membranes moist. Respiratory: Persistent hiccups noted. There are no retractions, lungs are clear to auscultation. Cardiovascular: Regular rate and rhythm. Gastrointestinal: Abdomen is soft and nontender, no masses, bowel sounds normal. Neurological: Alert and oriented x4. Skin: Warm and dry, no rashes. Musculoskeletal: Neck is supple nontender. Extremities are symmetrical, full range of motion. Psychiatric: Patient is oriented X 3, there is no agitation. (Lico White) Constitutional: Initial Vital Signs Heart Rate 68 01/25/17 23:39 Respiratory Rate 20 01/25/17 23:39 Blood Pressure 180/70 H 01/25/17 23:39 O2 Sat (%) 96 01/25/17 23:39 O2 Delivery Mode Room Air Allergies/Adverse Reactions: oxycodone Allergy (Verified 01/25/17 23:39) Itching Home Medications: Medication Instructions Recorded Atenolol [Tenormin 100 mg (*)] 100 mg PO HS 12/20/16 Primidone 100 mg PO DAILY 12/20/16 Simvastatin 40 mg PO HS 12/20/16 buPROPion SR [Wellbutrin 150mg SR 150 mg PO BID 12/20/16 (*)] diphenhydrAMINE [Benadryl 50 MG 50 mg PO HS PRN 12/20/16 (*)] Ibuprofen [Motrin (*)] 200 - 400 mg PO DAILY PRN 01/18/17 Acetaminophen [Tylenol ES 500 mg 1,000 mg PO TID tab 01/19/17 (*)] Diazepam [Valium 5 MG (*)] 5 mg PO Q6HRS PRN #40 tab 01/19/17 HYDROmorphone HCL [Dilaudid 2 mg 4 mg PO Q3H PRN #0 tab 01/19/17 (*)] traMADol HCL [Tramadol HCl] 50 mg PO Q6 PRN #30 tablet 01/19/17 chlorproMAZINE HCL [Thorazine (*)] 25 mg PO TID #5 tab 01/26/17 Medical Decision Making ED Course/Re-evaluation: Patient seen in conjunction with my secondary supervising physician Dr. Paula Quintero. Patient presents to the emergency department for intractable hiccups. He is otherwise nontoxic. He is treated with Thorazine with resolution of symptoms. He states he is feeling well and would like to be discharged. Patient is discharged home. He is given a short course of Thorazine for possible recurrent hiccups. He is to follow up with his doctor for recheck. Return precautions are given. Patient voiced understanding and agreement with plan. (Lico White) ED PA DICTATION I evaluated and participated in the management of the patient. I also evaluated the patient independently. My co-signature indicates that I have reviewed this chart and I agree with the findings and plan of care as documented. My personal H&P findings include: 67-year-old male with intractable headache ups with associated shortness of breath. He received Thorazine and is feeling much better, shortness of breath completely resolved. I doubt pulmonary embolism given this and lack of chest pain, tachycardia, hypoxia. (Paula Quintero) - Data Points Medications Given: Discontinued Medications Chlorpromazine HCl 50 mg/ (Sodium Chloride) 52 mls @ 62.4 mls/hr IV ONCE ONE Stop: 01/26/17 01:02 Last Admin: 01/26/17 00:46 Dose: 52 mls Departure - Departure Disposition: Home, Routine, Self-Care Clinical Impression: Hiccups Condition: Good Instructions: Hiccups (ED) Additional Instructions: Follow-up with your primary care doctor for recheck If symptoms worsen or new symptoms develop return to the emergency room for recheck Referrals: Kong Espinal [Primary Care Provider] - As per Instructions Prescriptions: chlorproMAZINE HCL [Thorazine (*)] 25 mg PO TID #5 tab
[2017-01-26] MEDS ORDERED: chlorproMAZINE HCL 50 MG in NS 50 ML IV ONE (00:13)
[2017-01-26 02:05] VITALS: BP 112/65; PULSE 74; RESP 15; O2SAT 94
== END 2017-01-26 02:05 | disposition home or self-care (01) ==
DX: R06.6 Hiccough (principal); I10 Essential (primary) hypertension; Z87.891 Personal history of nicotine dependence
CPT/HCPCS: 96365; 99284; J3230

== ENCOUNTER → 2017-03-04 | Outpatient (CLI) | payer OTHER | LOC: FIMAGING 13:22 | PROVIDERS: ATTEND Physician Assistant | DX: Z98.1 Arthrodesis status (principal); R20.2 Paresthesia of skin ==

== ENCOUNTER → 2017-04-16 | Outpatient (CLI) | payer OTHER | LOC: FLAB 11:39 | PROVIDERS: ATTEND Physician Assistant Surgical | DX: Z09 Encounter for follow-up examination after completed treatment for conditions other than malignant neoplasm (principal); Z98.1 Arthrodesis status ==

== ENCOUNTER → 2017-07-09 | Outpatient (CLI) | payer OTHER | LOC: FIMAGING 13:50 | PROVIDERS: ATTEND Physician Assistant Surgical | DX: Z09 Encounter for follow-up examination after completed treatment for conditions other than malignant neoplasm (principal); Z98.1 Arthrodesis status ==

== ENCOUNTER 2017-12-01 11:09 | Day surgery (SDC) | payer OTHER ==
[2017-12-01] MEDS ORDERED: LR 1,000 ML IV ONE (11:19)
[2017-12-01] MEDS ORDERED: LIDOCAINE 1% 2 ML INJ ID PRN (11:19)
[2017-12-01] MEDS ORDERED: BACITRACIN 50,000 UNITS/10 ML SYR IRR ONE (12:18)
[2017-12-01] MEDS ORDERED: BUPIVACAINE 0.25% 30 ML SDV ONE (12:18)
[2017-12-01] MEDS ORDERED: ceFAZolin 2 GM/DEXTROSE 100 ML IV ONE (12:26)
--- NOTE | 2017-12-01 12:26 | PDHPUP ---
History & Physical Update H&P update statement: This history and physical update is based on an assessment of the patient which was completed after admission or registration (within 24 hours), but prior to the surgery/procedure. H&P update: H&P reviewed & patient examined, no change in patient's condition since H&P completed
[2017-12-01] MEDS ORDERED: MIDAZOLAM 2 MG/2 ML VIAL ONE (12:28)
[2017-12-01] MEDS ORDERED: MIDAZOLAM 2 MG/2 ML VIAL IVP ONE (12:28)
--- NOTE | 2017-12-01 12:29 | PDANEPAE ---
ANE Past Medical History - Cardiovascular History Hx Hypertension: Yes Hx Arrhythmias: No Hx Chest Pain: No Hx Coronary Artery / Peripheral Vascular Disease: No Hx CHF / Valvular Disease: No Hx Palpitations: No Cardiovascular History Comment: pcp monitors bp meds. bp has been increasing recently with pain and back issues - Pulmonary History Hx COPD: No Hx Asthma/Reactive Airway Disease: No Hx Recent Upper Respiratory Infection: No Hx Oxygen in Use at Home: No Hx Sleep Apnea: No Sleep Apnea Screening Result - Last Documented: Positive Pulmonary History Comment: dana triggers - Neurologic History Hx Cerebrovascular Accident: No Hx Seizures: No Hx Dementia: No Neurologic History Comment: BENIGN ESSENTIAL TREMORS - Endocrine History Hx Diabetes: No - Renal History Hx Renal Disorders: No - Liver History Hx Hepatic Disorders: No - Neurological & Psychiatric Hx Hx Neurological and Psychiatric Disorders: Yes Neurological / Psychiatric History Comment: ANXIETY - Cancer History Hx Cancer: No - Congenital Disorder History Hx Congenital Disorders: No - GI History Hx Gastrointestinal Disorders: No Gastrointestinal History Comment: duodenum ulcer- no difficulties - Other Health History Other Health History: NEG - Chronic Pain History Chronic Pain: Yes (KNEES, SHOULDER,ANKLES, FOOT) - Surgical History Prior Surgeries: LUMBAR FUSION 12/2016. 10 or 15 yrs ago ruptured disc to back. bilateral elbow surgeries. knee surgeries. testicle removed at 12 yo d/t trauma. right shoulder surgery for dislocation and bicep tendon repair ANE Review of Systems Review of Systems: - Exercise capacity METS (RN): 5 METS ANE Patient History - Allergies Allergies/Adverse Reactions: oxycodone Allergy (Verified 01/25/17 23:39) Itching - Home Medications Home Medications: Atenolol [Tenormin 100 mg (*)] 100 mg PO HS 12/20/16 [Last Taken 12/01/17 08:30] Primidone 100 mg PO DAILY 12/20/16 [Last Taken 12/01/17 08:30] Simvastatin 40 mg PO HS 12/20/16 [Last Taken 11/30/17] buPROPion SR [Wellbutrin 150mg SR (*)] 150 mg PO BID 12/20/16 [Last Taken 08:30] Ibuprofen [Motrin (*)] 200 - 400 mg PO DAILY PRN 01/18/17 [Last Taken 11/24/17] Herbals/Supplements -Info Only 11/17/17 [Last Taken 11/24/17] Propranolol HCl 11/17/17 [Last Taken 12/01/17 08:30] - NPO status NPO Since - Liquids (Date): 12/01/17 NPO Since - Liquids (Time): 10:00 NPO Since - Solids (Date): 11/30/17 NPO Since - Solids (Time): 17:30 - Smoking Hx Smoking Status: Former smoker - Family Anes Hx Family Hx Anesthesia Complications: none ANE Labs/Vital Signs - Vital Signs Blood Pressure: 184/89 Heart Rate: 52 Respiratory Rate: 15 O2 Sat (%): 96 Height: 180.34 cm Weight: 91.626 kg ANE Physical Exam - Airway Neck exam: FROM Mallampati Score: Class 2 Mouth exam: normal dental/mouth exam - Pulmonary Pulmonary: no respiratory distress - Cardiovascular Cardiovascular: regular rate and rhythym - ASA Status ASA Status: II ANE Anesthesia Plan Total IV Anesthesia: Yes
[2017-12-01] MEDS ORDERED: PROPOFOL/EMULSION 500 MG/50 ML BOTTLE IV ONE (12:36)
[2017-12-01] MEDS ORDERED: fentaNYL 100 MCG/2 ML INJ ONE (12:36)
[2017-12-01] MEDS ORDERED: DEXAMETHASONE 4 MG/ML VIAL ONE ×2 (12:45→12:46)
[2017-12-01] MEDS ORDERED: METOCLOPRAMIDE 10 MG/2 ML VIAL ONE (12:46)
[2017-12-01] MEDS ORDERED: ONDANSETRON 4 MG/2 ML VIAL IVP PRN ×2 (13:46→13:52)
[2017-12-01] MEDS ORDERED: ALBUTEROL 3 ML DEYVIAL IH PRN (13:46)
[2017-12-01] MEDS ORDERED: fentaNYL 100 MCG/2 ML INJ IVP PRN (13:46)
[2017-12-01] MEDS ORDERED: NALOXONE HCL 0.4 MG/ML INJ IVP PRN (13:46)
--- NOTE | 2017-12-01 13:48 | POSTANESTH ---
Post Anesthetic Evaluation Cardiovascular Status: Similar to Pre-Op Cond Respiratory Status: Similar to Pre-op Cond. Level of Consciousness/Mental Status: Alert and Oriented Pain Control: Adequate, Prn Tx Ordered Nausea/Vomiting Control: Adequate, Prn Tx Ordered Complications Possibly Related to Anesthesia: None Noted
[2017-12-01] MEDS ORDERED: OXYCODONE/APAP 5/325 TAB PO PRN (13:52)
[2017-12-01] MEDS ORDERED: ONDANSETRON DISINTEGRATING 4 MG TAB PO PRN (13:52)
--- NOTE | 2017-12-01 14:52 | GOP ---
[f rep st] Operative Note DATE OF ADMISSION: 12/01/2017 ELECTRIC NEEDLE SPECIALIST: None. PREOPERATIVE DIAGNOSES: 1. Closed dislocation 2nd metatarsophalangeal joint, left foot. 2. Metatarsal left foot. POSTOPERATIVE DIAGNOSES: 1. Closed dislocation 2nd metatarsophalangeal joint, left foot. 2. Metatarsal left foot. PROCEDURE: 1. Open repair dislocation 2nd metatarsophalangeal joint, left foot. 2. Second metatarsal osteotomy, left foot. 3. Repair of flexor tendons, left foot. 4. Transfer flexor tendons, left foot. ANESTHESIA: MAC with local 15 mL 0.25% Marcaine plain. HEMOSTASIS: Left pneumatic ankle tourniquet inflated to 250 mmHg for 35 minutes. ESTIMATED BLOOD LOSS: Zero. MATERIALS: 2.0 snap off screws, Arthrex CPR kit, 3-0, 5-0 Vicryl. INJECTABLES: None. CONDITION: Stable. GROSS FINDINGS: Consistent with diagnoses. INDICATION FOR PROCEDURE: The patient with long-standing pain in the bottom of the left foot following an injury. The patient followed conservative nonsurgical treatment and has elected to undergo surgical intervention at this time. PROCEDURE IN DETAIL: After identification, the patient was brought into the operating room and placed on the operating room table in the supine position. Following IV sedation, local anesthesia was obtained around the patient's left foot utilizing a total of 15 mL 0.25% Marcaine plain. The pneumatic ankle tourniquet was placed around the patient's left ankle with ample padding. The left foot was then scrubbed, prepped and draped in usual aseptic manner. An Esmarch bandage was utilized to exsanguinate the patient's left foot. The pneumatic ankle tourniquet was then inflated. Attention was directed to the dorsal aspect of the patient's left foot where a 4 cm linear longitudinal incision was made over the dorsal aspect of the 2nd metatarsophalangeal joint. This incision was deepened through the subcutaneous tissue with care being taken to identify and retract all vital and neurovascular structures. Bleeders were ligated and cauterized as necessary. A linear capsulotomy was performed between the tendons of the extensor digitorum longus and brevis. The capsular structures were reflected medially and laterally. Thus, exposing the 2nd metatarsophalangeal joint at the operative site. A McGlamry elevator was inserted from distal to proximal between the head of the 2nd metatarsal and the plantar soft tissue structures. This served as a release of adhesions from the injury. Attention was then directed to the 2nd metatarsal bone where an oblique Radha metatarsal osteotomy was performed in the head and neck and shaft of the 2nd metatarsal bone parallel to the weight bearing surface of the foot. Upon completion of this [id number] osteotomy, from dorsal distal to plantar proximal, the capital fragment of the 2nd metatarsal was retracted, transferred proximally and temporarily fixated out of the way; thus, exposing the plantar plate complex. Plantar plate complex was evaluated and noted to be approximately 80% to 90% torn. The plantar plate tear was completed. The flexor tendons were evaluated and noted to be intact but partially torn. These were directly repaired with 3-0 Vicryl. The plantar plate complex as well as the flexor tendon complex were then gathered with a suture gathering instrument. A horizontal mattress suture was placed through both the flexor tendons and the plantar plate. This Fiberwire was set out of the way for continued use. Focus was then directed to the 2nd metatarsal osteotomy site which was brought back out to length and positioned into a slightly shortened position and fixated with 2 x 2.0 snap off Arthrex screws in standard technique. Fixation was noted to be excellent as is positioning. Two crossing drill holes were then made from dorsal distal to plantar proximal in the base of the proximal phalanx of the 2nd digit. The Fiberwire sutures which have gathered the plantar plate and flexor tendons were then passed through these drill holes and tied upon themselves at the dorsal aspect of the 2nd proximal phalanx. Thus, transferring the plantar plate and flexor tendons to the base of the 2nd proximal phalanx. This was done under normal physiologic tension. At this time, position of the 2nd metatarsophalangeal joint is noted to be excellent. Fixation is noted to be excellent. The incision site was then flushed with normal sterile saline solution. Capsular structures were then reapproximated utilizing 3-0 Vicryl subcutaneous tissue, reapproximated using 3- 0 Vicryl in the skin, reapproximated using 5-0 Vicryl in a running subcuticular suture technique. The patient was transported to the postoperative recovery area with vital signs stable and vascular status intact to the left foot. The patient tolerated the procedure and anesthesia well. /[id number]/MODL MTDD
[2017-12-01 15:46] VITALS: BP 161/79
== END 2017-12-01 15:35 | disposition home or self-care (01) ==
LOC: FSGY 11:09
PROVIDERS: ATTEND Podiatrist
PROC: 0SSN04Z Reposition Left Metatarsal-Phalangeal Joint with Internal Fixation Device, Open Approach (ICD-10-PCS; principal; 2017-12-01 12:30)
PROC: 0LQW0ZZ Repair Left Foot Tendon, Open Approach (ICD-10-PCS; principal; 2017-12-01 12:30)
DX: S93.145A Subluxation of metatarsophalangeal joint of left lesser toe(s), initial encounter (principal); M77.42 Metatarsalgia, left foot
CPT/HCPCS: C1713; J0690; J1100; J2250; J2704; J2765; J3010

== ENCOUNTER → 2018-01-21 | Outpatient (CLI) | payer OTHER | LOC: FIMAGING 15:48 | PROVIDERS: ATTEND Physician Assistant Surgical | DX: Z98.1 Arthrodesis status (principal) ==

== ENCOUNTER → 2018-03-13 | Outpatient (CLI) | payer OTHER | LOC: FIMAGING 18:32 | PROVIDERS: ATTEND Physician Assistant | DX: R93.7 Abnormal findings on diagnostic imaging of other parts of musculoskeletal system (principal); M48.061 Spinal stenosis, lumbar region without neurogenic claudication ==

== ENCOUNTER 2018-04-24 05:33 | Inpatient (IN) | payer OTHER ==
[2018-04-24] MEDS ORDERED: LR 1,000 ML IV ONE (05:51)
[2018-04-24] MEDS ORDERED: CEFUROXIME 1,500 MG in NS 50 ML IV ONE (06:00)
[2018-04-24 06:35] LABS: PLATELET COUNT 215 10^3/uL (150-400)
[2018-04-24] MEDS ORDERED: CHLORHEXIDINE GLUC HIBICLENS 118 ML BTL TP ONE ×2 (06:39→08:36)
[2018-04-24] MEDS ORDERED: BUPIVACAINE/EPI 0.25% 30 ML SDV ONE (06:39)
[2018-04-24] MEDS ORDERED: LIDOCAINE 2% JELLY 20 ML (UROJECT) ONE (06:39)
[2018-04-24] MEDS ORDERED: GENTAMICIN SULFATE 80 MG/2 ML VIAL ONE (06:39)
[2018-04-24] MEDS ORDERED: THROMBIN (BOVINE) 20,000 UNIT VIAL TP ONE (06:39)
[2018-04-24 06:41] LABS: INR 0.99 (0.83-1.16); PROTIME(PATIENT) 13.3 SEC (12.0-15.0)
--- NOTE | 2018-04-24 06:52 | PDANEPAE ---
ANE History of Present Illness Benign essential tremors here for DBS ANE Past Medical History - Cardiovascular History Hx Hypertension: Yes Hx Arrhythmias: No Hx Chest Pain: No Hx Coronary Artery / Peripheral Vascular Disease: No Hx CHF / Valvular Disease: No Hx Palpitations: No Cardiovascular History Comment: pcp monitors bp meds. bp has been increasing recently with pain and back issues. pt has white coat syndrome BP can climb to 190's - Pulmonary History Hx COPD: No Hx Asthma/Reactive Airway Disease: No Hx Recent Upper Respiratory Infection: No Hx Oxygen in Use at Home: No Hx Sleep Apnea: No Sleep Apnea Screening Result - Last Documented: Positive Pulmonary History Comment: dana triggers - Neurologic History Hx Cerebrovascular Accident: No Hx Seizures: No Hx Dementia: No Neurologic History Comment: BENIGN ESSENTIAL TREMORS - Endocrine History Hx Diabetes: No - Renal History Hx Renal Disorders: No - Liver History Hx Hepatic Disorders: No - Neurological & Psychiatric Hx Hx Neurological and Psychiatric Disorders: Yes Neurological / Psychiatric History Comment: High situational anxiety - Cancer History Hx Cancer: No - Congenital Disorder History Hx Congenital Disorders: No - GI History Hx Gastrointestinal Disorders: No Gastrointestinal History Comment: duodenum ulcer- no difficulties - Other Health History Other Health History: none - Chronic Pain History Chronic Pain: Yes (sciatic pain) - Surgical History Prior Surgeries: LUMBAR FUSION 12/2016. 10 or 15 yrs ago ruptured disc to back. bilateral elbow surgeries. knee surgeries. testicle removed at 12 yo d/t trauma. right shoulder surgery for dislocation and bicep tendon repair. torn metatarsal repair ANE Review of Systems Review of Systems: - Exercise capacity METS (RN): 4 METS ANE Patient History - Allergies Allergies/Adverse Reactions: oxycodone Allergy (Verified 04/23/18 11:25) Itching - Home Medications Home Medications: Atenolol [Tenormin 50 mg (*)] 04/16/18 [Last Taken 04/23/18] Herbals/Supplements -Info Only 04/16/18 [Last Taken 04/17/18] Naproxen Sodium [Aleve 220 MG (*)] 04/16/18 [Last Taken 04/17/18] Primidone [Mysoline 50mg (RX)] 04/16/18 [Last Taken 04/17/18] Simvastatin [Zocor] 04/16/18 [Last Taken 04/23/18] buPROPion SR [Wellbutrin 150mg SR (*)] 04/16/18 [Last Taken 04/24/18 05:00] - NPO status NPO Status: no food or drink >8 hours NPO Since - Liquids (Date): 04/24/18 NPO Since - Liquids (Time): 05:00 NPO Since - Solids (Date): 04/23/18 NPO Since - Solids (Time): 19:00 - Anes Hx Anes Hx: no prior problems - Smoking Hx Smoking Status: Former smoker - Alcohol Use Alcohol Use: None - Family Anes Hx Family Anes Hx: none Family Hx Anesthesia Complications: none ANE Labs/Vital Signs - Labs Result Diagrams: 04/24/18 06:15 04/24/18 06:15 - Vital Signs Blood Pressure: 179/86 Heart Rate: 56 Respiratory Rate: 16 O2 Sat (%): 94 Height: 181.61 cm Weight: 99.79 kg ANE Physical Exam - Airway Neck exam: FROM Mallampati Score: Class 2 Mouth exam: normal dental/mouth exam - Pulmonary Pulmonary: no respiratory distress, clear to auscultation - Cardiovascular Cardiovascular: regular rate and rhythym, no murmur, rub, or gallop - ASA Status ASA Status: III ANE Anesthesia Plan Anesthesia Plan: GA with mask, MAC (MAC transitioning to GA w/ mask) Total IV Anesthesia: Yes
[2018-04-24] MEDS ORDERED: DEXMEDETOMIDINE HCL 400 MCG in NS 100 ML IV ONE (07:00)
[2018-04-24] MEDS ORDERED: PROPOFOL/EMULSION 500 MG/50 ML BOTTLE IV ONE ×2 (07:09→08:37)
[2018-04-24] MEDS ORDERED: LIDOCAINE 2% 5 ML SDV ONE (07:13)
[2018-04-24] MEDS ORDERED: ACETAMINOPHEN 500 MG TAB PO PRN (10:02)
[2018-04-24] MEDS ORDERED: DIAZEPAM 5 MG/ML 1 ML SYR IVP PRN (10:02)
[2018-04-24] MEDS ORDERED: NALOXONE HCL 0.4 MG/ML INJ IVP PRN (10:02)
[2018-04-24] MEDS ORDERED: HYDROCODONE/APAP 5/325 TAB PO PRN (10:02)
[2018-04-24] MEDS ORDERED: fentaNYL 100 MCG/2 ML INJ IVP PRN (10:02)
[2018-04-24] MEDS ORDERED: ONDANSETRON 4 MG/2 ML VIAL IVP PRN ×2 (10:02→10:35)
[2018-04-24] MEDS ORDERED: POLYETHYLENE GLYCOL 3350 17 GM PKT PO PRN (10:35)
[2018-04-24] MEDS ORDERED: BISACODYL 10 MG SUPP PR PRN (10:35)
[2018-04-24] MEDS ORDERED: LACTULOSE 20 GM/30 ML UDCUP PO PRN (10:35)
[2018-04-24] MEDS ORDERED: MAGNESIUM HYDROXIDE 30 ML UDCUP PO PRN (10:35)
--- NOTE | 2018-04-24 10:40 | POSTANESTH ---
Post Anesthetic Evaluation Cardiovascular Status: Normal, Stable, Similar to Pre-Op Cond Respiratory Status: Normal, Stable, Similar to Pre-op Cond. Level of Consciousness/Mental Status: Can Participate in Eval, Alert and Oriented Pain Control: Adequate, Prn Tx Ordered Nausea/Vomiting Control: Adequate, Prn Tx Ordered Complications Possibly Related to Anesthesia: None Noted
[2018-04-24] MEDS ORDERED: NS W/ 20 KCl/L 1,000 ML IV SCH (10:45)
--- NOTE | 2018-04-24 10:47 | POSTOPPROG ---
Post Op Note Date of Operation: 04/24/18 Surgeon: Catherine Alicea [employer] Plant Attendant: Luisa Roy PA-C Anesthesiologist: Dr. Tinoco Anesthesia: IV Sedation, Local (Specify) Pre-op Diagnosis: Essential tremor Post-op Diagnosis: Essential tremor Procedure: Left VIM deep brain stimulator lead placement Inf/Abcess present in the surg proc area at time of surgery?: No Depth: Deep Incisional (Fascial) EBL: Minimal Plan Plan: 68 yo male s/p left VIM DBS for ET - neuro checks - pain control - postop head CT pending - maintain SBP < 140 - if head CT stable then patient can be transferred to the floor - plan for home tomorrow Exam Seen in recovery. Following commands, JULIAN Incision with dressing c/d/i
--- NOTE | 2018-04-24 12:16 | GOP ---
DATE OF OPERATION: SURGEON: Catherine Alicea DO NEUROSURGEON: Catherine Alicea DO. ENGINEERING DESIGNER: EBEN Astorga. PREOPERATIVE DIAGNOSIS: Essential tremor. POSTOPERATIVE DIAGNOSIS: Essential tremor. PROCEDURE PERFORMED: Left deep brain stimulator lead placement to VIM nucleus with Medtronic 3387 le ad. Stealth stereotaxis. FINDINGS: SPECIMENS: None. ESTIMATED BLOOD LOSS: 15 mL. INDICATIONS: This is a 68-year-old male with an essential tremor who was referred for left VIM deep brain stimulator lead placement. He underwent a multidisciplinary evaluation and was found to be a g ood candidate. Elected to move forward with surgery. DESCRIPTION OF PROCEDURE: He was identified, consented. Sites were marked. Brought to the operating room and anesthetized with local with MAC. Hair was clipped with the OR clippers. Head was cleanse d with chlorhexidine and ChloraPrep. Povidone iodine was placed on the pins, and using 0.25% Marcain e with epinephrine anesthetized pin sites, and then placed the Leksell frame stereotactically, perfor med a stereotactic spin with the O-arm 2, and merged this with the Stealth preoperative MRI in the [facility] Framelink software. The AC-PC distance was 28.55. The target was an X of -12.87, Y of -7.21, and Z of 0. The entry point was an X of -39.6, Y of 30.08, and Z of 70.50. This corresponded to 20. 8 degrees off midsagittal, 62.1 degrees off midaxial. This corresponded to Leksell frame coordinates of an X of 111.5, Y of 82.5, a Z of 112, a ring of 70 degrees, and arc of 110.8 degrees. These were all set and triple checked by all providers in the room. After prepping and draping in the usual st erile fashion incision, incision site was marked using the cannula and the Leksell frame coordinates. A half-mata incision was anesthetized with 0.5% Marcaine with epinephrine. A half-mata incision wa s made with a 10 blade and the periosteum was elevated with periosteal elevator. Billy clips were us ed for hemostasis. We then marked the bone opening and created a supervising airplane pilot hole with an acorn bur and th en a 14 mm Pradip bur hole was performed. The bone edges were waxed. We verified it was in the beth ropriate position. Placed the Stimloc with 5 mm Synthes screws, verified that the clipping mechanism clipped and locked. Opened the dura sharply with an 11 blade, and coagulated with bipolar cautery. We then introduced the cannula and plugged the hole with Gelfoam and DuraSeal. Removed the internal stylet. Placed a microelectrode. Checked impedances. All impedances were good. Performed microel ectrode recordings. Paula Roy was required as the culture media laboratory assistant at this point as 1 person needed t o remain scrubbed for the cannula and 1 person need to perform the MARLO. We got approximately 10 mm o f good VIM with motor driving and deep sensation. We did reach light touch, however, we Macro-Stim'd the middle of the lead, had excellent lesional effect. No side effects. Elected to leave the lead here approximately 2 above target which is where we got out of the VIM. We measured, placed the lead , removed the microelectrode, placed the lead at the appropriate level, checked impedances at all 4 c ontacts and then checked the lead at all 4 contacts. We had little to no side effects of very progra mmable lead at every single contact. He had significant lesional effect. There was no tremor to tano t. We then took an x-ray of the sites, performed a stereotactic spin and merged it. We w ere on less than 0.1 mm deviation from the original plan. We removed the Gel-Foam and DuraSeal, retracted the cannula, placed the clipping mechanism, clipped and locked the lead into place, remove d the stylet, marked the lead, brought it down and out, placed it into the groove, placed the cap, an d then took another x-ray. It had not migrated. Placed the boot over the lead extension complex, pl aced the lead extension over the lead, locked into place, protecting each contact. Using the torque wrench, brought the boot over the lead extension complex, tied in position with 2-0 silk ties at 2 po sitions, tunneled posterior with periosteal elevator. Anesthetized the stab incision with 0.5% Sayra ine with epinephrine, and made a stab incision with an 11 blade, tunneled posterior to anterior, brou ght the lead extension down and out cutting it at the skin, coiling the lead posterior and around the incision. Copiously irrigated with over a liter of gentamicin-infused saline. Final x-ray revealed that had not migrated. Closed the galea with 2-0 Vicryl pop-offs. The skin was closed with 3-0 run brook nylon. Wound was dressed with Xeroform and Telfa stapled down. The frame was removed. The pat ient's head was wrapped. The patient tolerated procedure well. No complications. FLUIDS: 1 L crystalloid. URINE OUTPUT: Not recorded. DRAINS: None. COMPLICATIONS: None. /[id number]/MODL
[2018-04-24] MEDS: CEFUROXIME 1,500 MG in NS 50 ML IV SCH ×2 (14:56→22:59)
[2018-04-24] MEDS: ACETAMINOPHEN 325 MG TAB PO PRN ×2 (15:04→22:59)
--- NOTE | 2018-04-24 15:07 | PDMN ---
Medical Necessity Medical necessity: Pt meets inpt criteria per MD order and Neurosurgery or Procedure GR, Medicare inpt only list. 68 y/o w/essential tremor admitted for L VIM deep brain stimulator lead placement and SDU lv post-op care.
[2018-04-24] MEDS: traMADol 50 MG TAB PO PRN ×2 (17:05→22:59)
[2018-04-24] MEDS: buPROPion XL 150 MG TAB PO SCH (19:28)
[2018-04-24] MEDS: hydrALAZINE 20 MG/ML VIAL IVP PRN (19:28)
[2018-04-24] MEDS: PRIMIDONE 50 MG TAB PO SCH (19:59)
[2018-04-24] MEDS ORDERED: ATENOLOL 100 MG TAB PO SCH (21:00)
[2018-04-24] MEDS: SENNOSIDES/DOCUSATE SODIUM TAB PO SCH (21:07)
--- NOTE | 2018-04-24 22:14 | GPN ---
DATE OF PROCEDURE: 04/24/2018 PREPROCEDURE DIAGNOSIS: Essential tremor. POSTPROCEDURE DIAGNOSIS: Essential tremor. PROCEDURE PERFORMED: Intraoperative functional subcortical mapping by microelectrode recording and s timulation. COMPLICATIONS: None. INDICATIONS FOR PROCEDURE: Determination of optimal electrode lead placement for deep brain stimulat ion therapy for essential tremor to the VIM. DESCRIPTION OF PROCEDURE: Following the incision on the left, a lena hole was drilled. The arc was then arranged with the following coordinates: X 111.5, Y 82.5, Z 112.0, ring 70, arc 110.8. The rec ording microelectrode was then slowly advanced into the brain using a central tract. There was evide nce of cell bursts above target at 13.5. There was evidence of entering VIM at 12.6 above target, wi th change in stimulation with passive range of motion of the shoulder. There was a tremor cell appar ent at 9.2 above target and change in stimulation with deep touch of the hand at 4.7 above target. W e exited VIM at 2.0 above target. We then proceeded with macrostimulation at 5 above target, and hernandez swan had constant tingling in his right hand at 3.5 with improved tremor. The patient also had a les ional effect with improvement in his right tremor. With these recordings, we then elected to proceed with test stimulation, placing the lead in the center tract with the bottom of the lead at 2 above t arget. At 0 negative, the patient had constant tingling in the right hand at 1.5. At 1 negative, th e patient had improved tremor at 1.5 with a faint constant tingling in the right hand at 3.0. At 2 n egative, patient had mild tingling at 3.5. At 3 negative, patient had no side effects up to 3.5. Wi th these recordings and test stimulation obtained, we elected to place the lead in this location in t he center tract with the lead at 2 above target. The patient tolerated the surgery well and was landon sferred to the floor for further neurological checks and pain control. /[id number]/MODL
[2018-04-25] MEDS: hydrALAZINE 20 MG/ML VIAL IVP PRN ×2 (01:53→08:55)
[2018-04-25] MEDS: ACETAMINOPHEN 325 MG TAB PO PRN ×2 (05:41→12:50)
[2018-04-25] MEDS: traMADol 50 MG TAB PO PRN ×2 (05:41→15:46)
[2018-04-25] MEDS: PRIMIDONE 50 MG TAB PO SCH (08:54)
[2018-04-25] MEDS: SENNOSIDES/DOCUSATE SODIUM TAB PO SCH (08:54)
[2018-04-25] MEDS: buPROPion XL 150 MG TAB PO SCH (08:54)
[2018-04-25] MEDS ORDERED: ATORVASTATIN CALCIUM 20 MG TAB PO SCH (09:00)
--- NOTE | 2018-04-25 09:00 | SOAPPROG ---
SOAP Progress Note Assessment/Plan: Assessment: POD #1 sp left DBS for essential tremor C/O SALAZAR this AM that has not resolved with Morphine No new neuro issues Plan: Keep head wrap in place DC IV morphine DC home today once SALAZAR improved 04/25/18 08:57 04/25/18 09:00 Subjective: awake, complains of SALAZAR. States RLE is back to normal Objective: Vital Signs Temp Pulse Resp BP Pulse Ox 36.6 C 68 16 147/63 H 94 04/25/18 07:43 04/25/18 07:43 04/25/18 07:43 04/25/18 08:55 04/25/18 07:43 Laboratory Results 04/24/18 06:15 04/24/18 06:15 04/24/18 04/25/18 04/26/18 05:59 05:59 05:59 Intake Total 3556 Output Total 305 Balance 3251 PT 13.3 SEC (12.0-15.0) 04/24/18 06:15 INR 0.99 (0.83-1.16) 04/24/18 06:15 Neuro: JULIAN, sens +LT follows commands dressing dry ICD10 Worksheet Patient Problems: Problems Problem Status Onset Back pain Acute Lumbar spondylosis Acute
[2018-04-25] MEDS ORDERED: ACET/CAFFEINE/BUTA FIORICET 1 EACH TAB PO PRN (09:49)
--- NOTE | 2018-04-25 13:15 | ASMTCMCOM ---
CM Note CM Note Notes: CM reviewed pt's chart for d/c planning. Pt admitted in order to have surgery for essential tremor. A DBS lead was placed. No OT/PT ordered. No CM needs identified. Anticipate independent. D/C Plan: Independent Date Signed: 04/25/2018 01:15 PM Electronically Signed By:Judy Merida
[2018-04-25 14:50] VITALS: BP 136/66
--- NOTE | 2018-04-25 15:46 | ASDISCHSUM ---
Discharge Information Plan Status:Home with No Needs Medically Cleared to Leave: Discharge Date: CM D/C Disposition:Home, Routine, Self-Care ADT D/C Disposition:Home, Routine, Self-Care Projected Discharge Date: Transportation at D/C:Family Discharge Delay Reason: Follow-Up Date: Discharge Slot: Final Diagnosis: Placement Information Patient Contact Information Contact Name:ISABELLA Relationship: Address:[address] City:[place] Alternate Phone: State/Zip Code:[place] [address] Email: Financial Information Financial Class:Medicare Advantage Plans Primary Plan Desc:[facility] ADVANTAGE PLANS Primary Plan Number:[id number] Secondary Plan Desc: Secondary Plan Number: Assessment Information LACE LACE Length of stay for Answers: Less than 1 day current admission Acuity / Level of Answers: Yes Care: Did the patient have an inpatient admission? # of Emergency department Answers: 0 visits in the last 6 months Score: 3 Date Signed: 04/25/2018 03:45 PM Electronically Signed By:Judy Merida [facility] CM Progress Note CM Note CM Note Notes: CM reviewed pt's chart for d/c planning. Pt admitted in order to have surgery for essential tremor. A DBS lead was placed. No OT/PT ordered. No CM needs identified. Anticipate independent. D/C Plan: Independent Date Signed: 04/25/2018 01:15 PM Electronically Signed By:Judy Merida Intervention Information
[2018-04-27] MEDS ORDERED: ENOXAPARIN 40 MG/0.4 ML SYR SC SCH (09:00)
== END 2018-04-25 17:00 | disposition home or self-care (01) | DRG 27 ==
LOC: F3N 05:33 → F2N 14:25
PROVIDERS: ADMIT Neurological Surgery; ATTEND Neurological Surgery
PROC: 00H03MZ Insertion of Neurostimulator Lead into Brain, Percutaneous Approach (ICD-10-PCS; principal; 2018-04-24 07:15)
DX: G25.0 Essential tremor (principal); I10 Essential (primary) hypertension; G47.33 Obstructive sleep apnea (adult) (pediatric); F41.9 Anxiety disorder, unspecified
CPT/HCPCS: J0360; J0697; J1580; J2270; J2704

== ENCOUNTER 2018-05-15 05:45 | Day surgery (SDC) | payer OTHER ==
[2018-05-15] MEDS ORDERED: ceFAZolin 2 GM/DEXTROSE 100 ML IV ONE (06:03)
[2018-05-15] MEDS ORDERED: ACETAMINOPHEN 500 MG TAB PO ONE (06:03)
[2018-05-15] MEDS ORDERED: LR 1,000 ML IV ONE (06:06)
[2018-05-15] MEDS ORDERED: CHLORHEXIDINE GLUC HIBICLENS 118 ML BTL TP ONE (06:43)
[2018-05-15] MEDS ORDERED: GENTAMICIN SULFATE 80 MG/2 ML VIAL ONE (06:43)
[2018-05-15] MEDS ORDERED: LIDOCAINE 1% 300 MG/30 ML SDV ONE (06:43)
[2018-05-15] MEDS ORDERED: BUPIVACAINE/EPI 0.25% 30 ML SDV ONE (06:43)
--- NOTE | 2018-05-15 06:59 | PDANEPAE ---
ANE History of Present Illness stage 2 stimulator ANE Past Medical History - Cardiovascular History Hx Hypertension: Yes Hx Arrhythmias: No Hx Chest Pain: No Hx Coronary Artery / Peripheral Vascular Disease: No Hx CHF / Valvular Disease: No Hx Palpitations: No Cardiovascular History Comment: pcp monitors bp meds. bp has been increasing recently with pain and back issues. RUNS ABOUT 140 AT HOME - Pulmonary History Hx COPD: No Hx Asthma/Reactive Airway Disease: No Hx Recent Upper Respiratory Infection: No Hx Oxygen in Use at Home: No Hx Sleep Apnea: No Sleep Apnea Screening Result - Last Documented: Positive Pulmonary History Comment: dana triggers - Neurologic History Hx Cerebrovascular Accident: No Hx Seizures: No Hx Dementia: No Neurologic History Comment: BENIGN ESSENTIAL TREMORS - Endocrine History Hx Diabetes: No - Renal History Hx Renal Disorders: No - Liver History Hx Hepatic Disorders: No - Neurological & Psychiatric Hx Hx Neurological and Psychiatric Disorders: Yes Neurological / Psychiatric History Comment: ANXIETY - Cancer History Hx Cancer: No - Congenital Disorder History Hx Congenital Disorders: No - GI History Hx Gastrointestinal Disorders: Yes Gastrointestinal History Comment: duodenum ulcer- no difficulties - Other Health History Other Health History: NEG - Chronic Pain History Chronic Pain: Yes (BACK, KNEES) - Surgical History Prior Surgeries: LEAD PLACEMENT DBS 04/24/18. LUMBAR FUSION 12/2016. 10 or 15 yrs ago ruptured disc to back. bilateral elbow surgeries. knee surgeries. testicle removed at 12 yo d/t trauma. right shoulder surgery for dislocation and bicep tendon repair ANE Review of Systems Review of Systems: - Exercise capacity METS (RN): 4 METS ANE Patient History - Allergies Allergies/Adverse Reactions: oxycodone Allergy (Verified 04/23/18 11:25) Itching - Home Medications Home medications: home medication list seen and reviewed Home Medications: Atenolol 100 mg PO HS 04/24/18 [Last Taken 05/14/18] Primidone [Mysoline] 100 mg PO BID 04/24/18 [Last Taken 05/13/18] Simvastatin [Zocor] 40 mg PO HS 04/24/18 [Last Taken 05/14/18] buPROPion XL [Wellbutrin 150mg XL] 150 mg PO BID 04/24/18 [Last Taken 05/14/18] - NPO status NPO Status: no food or drink >8 hours NPO Since - Liquids (Date): 05/14/18 NPO Since - Liquids (Time): 21:00 NPO Since - Solids (Date): 05/14/18 NPO Since - Solids (Time): 18:30 - Anes Hx Anes Hx: no prior problems - Smoking Hx Smoking Status: Former smoker - Alcohol Use Alcohol Use: None - Family Anes Hx Family Anes Hx: none Family Hx Anesthesia Complications: none ANE Labs/Vital Signs - Labs - CBC WBC: all labs reviewed and okay - Vital Signs Blood Pressure: 180/91 Heart Rate: 62 Respiratory Rate: 14 O2 Sat (%): 93 Height: 181.61 cm Weight: 99.79 kg ANE Physical Exam - Airway Neck exam: FROM Mallampati Score: Class 2 Mouth exam: normal dental/mouth exam - Pulmonary Pulmonary: no respiratory distress - Cardiovascular Cardiovascular: regular rate and rhythym - ASA Status ASA Status: II ANE Anesthesia Plan Anesthesia Plan: general endotracheal anesthesia
[2018-05-15] MEDS ORDERED: PROPOFOL/EMULSION 500 MG/50 ML BOTTLE IV ONE (07:16)
[2018-05-15] MEDS ORDERED: fentaNYL 100 MCG/2 ML INJ ONE (07:16)
[2018-05-15] MEDS ORDERED: REMIFENTANIL HCL 1 MG VIAL ONE (07:16)
[2018-05-15] MEDS ORDERED: LIDOCAINE 2% 100 MG/5 ML SYR ONE (07:19)
[2018-05-15] MEDS ORDERED: DEXAMETHASONE 4 MG/ML VIAL ONE ×2 (07:19)
[2018-05-15] MEDS ORDERED: ONDANSETRON 4 MG/2 ML VIAL ONE (07:19)
[2018-05-15] MEDS ORDERED: ePHEDrine SULFATE 25 MG/5 ML SYR ONE (07:35)
[2018-05-15] MEDS ORDERED: HYDROCODONE/APAP 5/325 TAB PO PRN ×2 (08:25→08:46)
[2018-05-15] MEDS ORDERED: ONDANSETRON DISINTEGRATING 4 MG TAB PO PRN (08:25)
--- NOTE | 2018-05-15 08:28 | POSTOPPROG ---
Post Op Note Date of Operation: 05/15/18 Surgeon: Catherine Alicea .Net Architect: Luisa Roy PA-C Anesthesiologist: Dr. Saul Anesthesia: GET(General Endotracheal) Pre-op Diagnosis: Essential tremor Post-op Diagnosis: Essential tremor Procedure: Left DBS generator implant Inf/Abcess present in the surg proc area at time of surgery?: No Depth: Superfical (Skin SQ) EBL: Minimal Plan Plan: 68 yo male s/p left DBS generator implant - pain contol - advance diet - discharge home
--- NOTE | 2018-05-15 08:32 | GOP ---
DATE OF OPERATION: SURGEON: Catherine Alicea DO NEUROSURGEON: Catherine Alicea D.O. HEAD LOADER: EBEN Astorga PREOPERATIVE DIAGNOSIS: Essential tremor. POSTOPERATIVE DIAGNOSIS: Essential tremor. PROCEDURE PERFORMED: 1. Left deep brain stimulator, generator placed was a Medtronic Activa SC. 2. Impedances. FINDINGS: SPECIMENS: None. ESTIMATED BLOOD LOSS: 25 mL. INDICATIONS: This is a 68-year-old male with essential tremor. Deep brain stimulator lead placed. He returns for generator placement. He was identified, consented. Sites were marked. DESCRIPTION OF PROCEDURE: Brought to the operating room, anesthetized under a general endotracheal t ube anesthesia. Hair was clipped with the OR clippers. Incision sites were marked. He was prepped and draped in the usual sterile fashion. Incision at the chest wall was anesthetized with 0.5% Sayra ine with epinephrine and 50:50 mixture with 1% lidocaine plain. Incision was made just lateral to le ad extension complex with a 10 blade and the lead extension complex was dissected out with Metzenbaum scissors. Incision was made at the chest wall with a 10 blade and a fascial pocket was created with blunt dissection. Meticulous hemostasis was obtained with bipolar cautery. Then tunneled in a sing le pass from the head down to the chest with the lead extension. We retracted the boot, protecting e ach contact. Removed the extension cap and boots, placed a new boot, dried the lead, placed the lead into the generator, protecting each contact, locked into place with a torque wrench. Brought the terry ot down around the extension, tied into position with 2-0 silk ties at 2 positions, brought it flat a gainst the skull head, placed the lead into the generator, locked into place with a torque wrench. C oiled the wires posterior to the generator, checked impedances, all impedances were good. Sutured th e generator to the chest wall with 2-0 silk stitch at 2 positions. Copiously irrigated each incision with over a liter of gentamicin-infused saline. Closed the galea with 2-0 Vicryl pop-offs. The ski n was closed with 3-0 running nylon. At the chest wall the fascia was closed with 2-0 Vicryl pop-off s, subcutaneous layer of 3-0 Vicryl pop-offs. The skin was closed with 4-0 running Monocryl and Derm abond. Head was dressed with Xeroform, gauze and a Tegaderm. Patient tolerated procedure well. All impedances were good. There were no complications. FLUIDS: 800 mL crystalloid. URINE OUTPUT: None. DRAINS: None. COMPLICATIONS: None. /[id number]/MODL
[2018-05-15] MEDS ORDERED: HYDROCODONE/APAP 5/325 TAB ONE (08:38)
[2018-05-15] MEDS ORDERED: DEXAMETHASONE 4 MG/ML VIAL IVP PRN (08:46)
[2018-05-15] MEDS ORDERED: LR 500 ML IV PRN (08:46)
[2018-05-15] MEDS ORDERED: PHENYLEPHRINE HCL 100 MCG/ML SYR IVP PRN (08:46)
[2018-05-15] MEDS ORDERED: ONDANSETRON 4 MG/2 ML VIAL IVP PRN (08:46)
[2018-05-15] MEDS ORDERED: ALBUTEROL 3 ML DEYVIAL IH PRN (08:46)
[2018-05-15] MEDS ORDERED: NALOXONE HCL 0.4 MG/ML INJ IVP PRN (08:46)
[2018-05-15] MEDS ORDERED: LABETALOL HCL 5 MG/ML 20 ML MDV IVP PRN (08:46)
[2018-05-15] MEDS ORDERED: METOCLOPRAMIDE 10 MG/2 ML VIAL IVP PRN (08:46)
[2018-05-15] MEDS ORDERED: MEPERIDINE 25 MG/0.5 ML AMP IVP PRN (08:46)
[2018-05-15] MEDS ORDERED: PROMETHAZINE HCL 25 MG/ML INJ IVP PRN (08:46)
[2018-05-15] MEDS: fentaNYL 100 MCG/2 ML INJ IVP PRN ×4 (09:10→09:58)
[2018-05-15 10:48] VITALS: BP 152/76
--- NOTE | 2018-05-15 17:03 | POSTANESTH ---
Post Anesthetic Evaluation Cardiovascular Status: Normal, Stable Respiratory Status: Normal, Stable Level of Consciousness/Mental Status: Can Participate in Eval Pain Control: Adequate, Prn Tx Ordered Nausea/Vomiting Control: Adequate, Prn Tx Ordered Complications Possibly Related to Anesthesia: None Noted
== END 2018-05-15 10:23 | disposition home or self-care (01) ==
LOC: FSGY 05:45
PROVIDERS: ATTEND Neurological Surgery
PROC: 0JH63BZ Insertion of Single Array Stimulator Generator into Chest Subcutaneous Tissue and Fascia, Percutaneous Approach (ICD-10-PCS; principal; 2018-05-15 07:15)
DX: G25.0 Essential tremor (principal); I10 Essential (primary) hypertension; F41.9 Anxiety disorder, unspecified; Z87.442 Personal history of urinary calculi; Z98.1 Arthrodesis status
CPT/HCPCS: C1767; C1787; C1883; J0690; J1100; J1580; J2001; J2405; J2704; J3010

== ENCOUNTER → 2018-09-05 | Outpatient (CLI) | payer OTHER | LOC: FIMAGING 11:15 | PROVIDERS: ATTEND Nurse Practitioner | DX: Z98.1 Arthrodesis status (principal); M51.36 Other intervertebral disc degeneration, lumbar region; M43.16 Spondylolisthesis, lumbar region ==

== ENCOUNTER → 2018-09-08 | Outpatient (CLI) | payer OTHER | LOC: GIMAGING 13:24 → EDSTATUS 16:52 | PROVIDERS: ATTEND Family Medicine | DX: Z01.818 Encounter for other preprocedural examination (principal); Z87.891 Personal history of nicotine dependence | CPT/HCPCS: 71046-PO ==

== ENCOUNTER 2018-09-17 09:36 | Inpatient (IN) | payer OTHER ==
[2018-09-17] MEDS ORDERED: morphINE SR 15 MG TAB PO ONE (09:59)
[2018-09-17] MEDS ORDERED: GABAPENTIN 300 MG CAP PO ONE (09:59)
[2018-09-17] MEDS ORDERED: morphINE PF 0.2 MG in SYRINGE INTRATHECAL 1 SYR IT ONE (09:59)
[2018-09-17] MEDS ORDERED: ACETAMINOPHEN 500 MG TAB PO ONE (09:59)
[2018-09-17] MEDS ORDERED: ceFAZolin 2 GM/DEXTROSE 100 ML IV ONE (09:59)
[2018-09-17] MEDS ORDERED: LR 1,000 ML IV ONE (10:01)
[2018-09-17] MEDS ORDERED: THROMBIN (BOVINE) 20,000 UNIT VIAL TP ONE (10:10)
[2018-09-17] MEDS ORDERED: CITRATE DEXTROSE SOLN 500 ML BAG ONE (10:10)
[2018-09-17] MEDS ORDERED: CHLORHEXIDINE GLUC HIBICLENS 118 ML BTL TP ONE (10:10)
[2018-09-17] MEDS ORDERED: BUPIVACAINE/EPI 0.25% 30 ML SDV ONE (10:11)
[2018-09-17] MEDS ORDERED: BACITRACIN 50,000 UNITS/10 ML SYR IRR ONE (10:12)
[2018-09-17] MEDS ORDERED: LIDOCAINE 1% 2 ML INJ ID PRN (10:13)
[2018-09-17] MEDS ORDERED: LIDOCAINE 1% 2 ML INJ ONE (10:15)
[2018-09-17] MEDS ORDERED: MIDAZOLAM 2 MG/2 ML VIAL IVP ONE (10:21)
--- NOTE | 2018-09-17 10:22 | PDANEPAE ---
ANE Past Medical History - Cardiovascular History Hx Hypertension: Yes Hx Arrhythmias: No Hx Chest Pain: No Hx Coronary Artery / Peripheral Vascular Disease: No Hx CHF / Valvular Disease: No Hx Palpitations: No Cardiovascular History Comment: pcp monitors bp meds. bp has been increasing recently with pain and back issues - Pulmonary History Hx COPD: No Hx Asthma/Reactive Airway Disease: No Hx Recent Upper Respiratory Infection: No Hx Oxygen in Use at Home: No Hx Sleep Apnea: No Sleep Apnea Screening Result - Last Documented: Positive Pulmonary History Comment: dana triggers - Neurologic History Hx Cerebrovascular Accident: No Hx Seizures: No Hx Dementia: No Neurologic History Comment: BENIGN ESSENTIAL TREMORS - Endocrine History Hx Diabetes: No - Renal History Hx Renal Disorders: No - Liver History Hx Hepatic Disorders: No - Neurological & Psychiatric Hx Hx Neurological and Psychiatric Disorders: Yes Neurological / Psychiatric History Comment: ANXIETY. sciatica,n/t both legs. severe on right. pt to bring remote for DBS - Cancer History Hx Cancer: No - Congenital Disorder History Hx Congenital Disorders: No - GI History Hx Gastrointestinal Disorders: No Gastrointestinal History Comment: duodenum ulcer- no difficulties - Other Health History Other Health History: none. Distant hx of DVT's > 15yrs - Chronic Pain History Chronic Pain: Yes (bilat lower extremities) - Surgical History Prior Surgeries: LUMBAR FUSION 12/2016. 10 or 15 yrs ago ruptured disc to back. bilateral elbow surgeries. knee surgeries. DBS placement 05/05. testicle removed at 12 yo d/t trauma. right shoulder surgery for dislocation and bicep tendon repair ANE Review of Systems Review of Systems: - Exercise capacity METS (RN): 4 METS ANE Patient History - Allergies Allergies/Adverse Reactions: oxycodone Allergy (Verified 09/09/18 18:19) Itching - Home Medications Home Medications: Simvastatin [Zocor] 40 mg PO HS 04/24/18 [Last Taken 05/14/18] Ascorbic Acid [Vitamin C 500 mg (*)] 500 mg PO DAILY 09/09/18 [Last Taken Unknown] Atenolol [Tenormin 50 mg (*)] 100 mg PO DAILY 09/09/18 [Last Taken Unknown] Cholecalciferol Vit D3 [Vitamin D3 (*)] 1,000 units PO DAILY 09/09/18 [Last Taken Unknown] Herbals/Supplements -Info Only 1 each PO DAILY 09/09/18 [Last Taken Unknown] Lisinopril [Zestril 20 mg (*)] 20 mg PO DAILY 09/09/18 [Last Taken Unknown] buPROPion SR [Wellbutrin 150mg SR (*)] 150 mg PO BID 09/09/18 [Last Taken Unknown] - Smoking Hx Smoking Status: Former smoker - Family Anes Hx Family Hx Anesthesia Complications: none ANE Labs/Vital Signs - Vital Signs Height: 182.88 cm Weight: 97.976 kg ANE Physical Exam - Airway Neck exam: FROM Mallampati Score: Class 2 Mouth exam: normal dental/mouth exam - Pulmonary Pulmonary: no respiratory distress - Cardiovascular Cardiovascular: regular rate and rhythym - ASA Status ASA Status: II ANE Anesthesia Plan Anesthesia Plan: general endotracheal anesthesia
--- NOTE | 2018-09-17 10:49 | PDHPUP ---
History & Physical Update H&P update statement: This history and physical update is based on an assessment of the patient which was completed after admission or registration (within 24 hours), but prior to the surgery/procedure. H&P update: H&P reviewed & patient examined, no change in patient's condition since H&P completed (Consents signed and site marked. All questions answered.)
[2018-09-17] MEDS ORDERED: PROPOFOL/EMULSION 500 MG/50 ML BOTTLE IV ONE ×3 (10:56→13:55)
[2018-09-17] MEDS ORDERED: ROCURONIUM 100 MG/10 ML VIAL ONE (10:56)
[2018-09-17] MEDS ORDERED: RANITIDINE 50 MG/2 ML VIAL ONE (10:57)
[2018-09-17] MEDS ORDERED: DEXAMETHASONE 4 MG/ML VIAL ONE (10:57)
[2018-09-17] MEDS ORDERED: LIDOCAINE 2% 100 MG/5 ML SYR ONE (10:57)
[2018-09-17] MEDS ORDERED: PHENYLEPHRINE 10 MG/ML SDV ONE (10:57)
[2018-09-17] MEDS ORDERED: TRANEXAMIC ACID 1,000 MG in NS 100 ML IV ONE (11:45)
[2018-09-17] MEDS ORDERED: NEOSTIGMINE METHYLSULFATE 10 MG/10 ML MDV ONE (14:42)
[2018-09-17] MEDS ORDERED: ONDANSETRON 4 MG/2 ML VIAL ONE (14:42)
[2018-09-17] MEDS ORDERED: GLYCOPYRROLATE 0.2 MG/1 ML VIAL ONE ×2 (14:42)
[2018-09-17] MEDS ORDERED: NALOXONE HCL 0.4 MG/ML INJ IVP PRN ×2 (15:09→16:24)
[2018-09-17] MEDS ORDERED: ONDANSETRON 4 MG/2 ML VIAL IVP PRN ×2 (15:09→16:24)
[2018-09-17] MEDS ORDERED: fentaNYL 100 MCG/2 ML INJ IVP PRN (15:09)
[2018-09-17] MEDS ORDERED: ALBUTEROL 3 ML DEYVIAL IH PRN (15:09)
[2018-09-17] MEDS ORDERED: diphenhydrAMINE 25 MG CAP PO PRN (16:24)
[2018-09-17] MEDS ORDERED: LACTULOSE 20 GM/30 ML UDCUP PO PRN (16:24)
[2018-09-17] MEDS ORDERED: POLYETHYLENE GLYCOL 3350 17 GM PKT PO PRN (16:24)
[2018-09-17] MEDS ORDERED: MAGNESIUM HYDROXIDE 30 ML UDCUP PO PRN (16:24)
[2018-09-17] MEDS ORDERED: BISACODYL 10 MG SUPP PR PRN (16:24)
--- NOTE | 2018-09-17 16:24 | POSTOPPROG ---
Post Op Note Date of Operation: 09/17/18 Surgeon: Juan Carlos [employer] General Manager: ELIZABETH Valdes PAC Anesthesia: GET(General Endotracheal) Pre-op Diagnosis: Lumbar stenosis Post-op Diagnosis: Lumbar stenosis Indication: Lumbar stenosis Procedure: Exploration & revision of hardware L4/5, Right L3/4 & L5/S1 TLIF, L3- S1 PSF Inf/Abcess present in the surg proc area at time of surgery?: No EBL: 150cc Drains: Arslan CARPIO Addendum - Addendum .: S: Resting comfortably O: NAD [id number] MAEx4 5/5 and equal in BUE and BLE A/P 68y/o male s/p Exploration & revision of hardware L4/5, Right L3/4 & L5/S1 TLIF, L3-S1 PSF -Optimize pain management -Advance diet as tolerated -PT/OT -Post op xrays pending -JPx1 -DVT prophx: TEDs, SCDs, Lovenox okay POD1 -Please notify NS with any change in neuro/motor exam
[2018-09-17] MEDS ORDERED: HYDROCODONE/APAP 5/325 TAB PO PRN (16:28)
--- NOTE | 2018-09-17 16:28 | POSTANESTH ---
Post Anesthetic Evaluation Cardiovascular Status: Similar to Pre-Op Cond Respiratory Status: Similar to Pre-op Cond. Level of Consciousness/Mental Status: Mildly Sleepy, Arousable Pain Control: Adequate, Prn Tx Ordered Nausea/Vomiting Control: Adequate, Prn Tx Ordered Complications Possibly Related to Anesthesia: None Noted
[2018-09-17] MEDS ORDERED: traMADol 50 MG TAB PO PRN (16:29)
[2018-09-17] MEDS ORDERED: NS 1,000 ML IV SCH (16:30)
--- NOTE | 2018-09-17 17:50 | PDMN ---
Medical Necessity Medical necessity: Pt meets inpt criteria per MD order and [facility] S-820, Lumbar Fusion, [facility] IP only list, 2 days, 68 y/o w/lumbar stenosis admitted for exploration and revision of hardware L4/5, R L3/4 and L5/S1 TLIF, L3-S1 PSF, and post-op care.
[2018-09-17] MEDS: ONDANSETRON DISINTEGRATING 4 MG TAB PO PRN (20:16)
[2018-09-17] MEDS: ceFAZolin 2 GM/DEXTROSE 100 ML IV SCH (20:25)
[2018-09-17] MEDS: ATORVASTATIN CALCIUM 20 MG TAB PO SCH (20:32)
[2018-09-17] MEDS: SENNOSIDES/DOCUSATE SODIUM TAB PO SCH (20:32)
[2018-09-17] MEDS: buPROPion SR 150 MG TAB PO SCH (20:32)
[2018-09-17] MEDS: FAMOTIDINE 20 MG TAB PO SCH (20:32)
--- NOTE | 2018-09-17 20:47 | GOP ---
[f rep st] OPERATIVE REPORT DATE OF OPERATION: 09/17/2018 SURGEON: Juan Carlos Reyes MD SHIELD RUNNER: Milly Valdes PA-C ANESTHESIA: General. PREOPERATIVE DIAGNOSIS: 1. Adjacent level breakdown L3-L4 and L5-S1 with history of prior lumbar fusion L4-S1 L5. 2. Lumbar spinal stenosis L3-L4 with right lateral recess and foraminal stenosis. 3. L5-S1 right lateral recess foraminal stenosis. 4. Right greater than left lower extremity radiculopathy and claudication. 5. Treatment refractory to nonoperative interventions. POSTOPERATIVE DIAGNOSIS: 1. Adjacent level breakdown L3-L4 and L5-S1 with history of prior lumbar fusion L4-S1 L5. 2. Lumbar spinal stenosis L3-L4 with right lateral recess and foraminal stenosis. 3. L5-S1 right lateral recess foraminal stenosis. 4. Right greater than left lower extremity radiculopathy and claudication. 5. Treatment refractory to nonoperative interventions. PROCEDURE PERFORMED: 1. Posterior arthrodesis with approach to L3, L4, L5, and S1. 2. Exploration of prior lumbar hardware L4-5 with subsequent nonsegmental hardware removal at L4 and L5. 3. Posterolateral fusion with bilateral pedicle screw placement L3 and S1 from [employer] Solera 4.75 system. 4. Decompressive laminectomy, L3-L4 with bilateral medial facetectomies. 5. Right-sided L3-L4 facetectomy, diskectomy and interbody fusion using a 7 x 28 mm titanium polyetheretherketone Elevate cage filled with morselized autograft and allograft. 6. Right-sided L5-S1 facetectomy, diskectomy and interbody fusion using an 8 x 28 mm titanium polyetheretherketone Elevate cage filled with morselized autograft and allograft. 7. Posterolateral fusion on the left between L3-L4 and L5-S1 with morselized autograft and allograft. 8. Use of intraoperative 3D navigation. 9. Use of intraoperative fluoroscopy, less than 1 hour physician time. 10. Use of neuromonitoring. 11. Use of operating microscope. 12. Injection of preservative-free intrathecal narcotics. FINDINGS: per imaging SPECIMENS: None. ESTIMATED BLOOD LOSS: 150 mL. INDICATIONS: The patient is a very pleasant gentleman who has undergone prior lumbar fusion L4-L5 several years ago from which he did quite well. He presented with worsening right greater than left lower extremity radiculopathy secondary to claudication and had evidence of adjacent level breakdown at L3-L4 and L5-S1. After discussion of risks, benefits, and alternatives and after failing nonoperative management, we decided to proceed forth with surgery as described above. DESCRIPTION OF PROCEDURE: The patient was brought to the operating theater and underwent general endotracheal anesthesia without complication. He had Venodynes, TAMMIE hose, and the appropriate lines placed by Anesthesia. He was flipped prone onto the Arslan table. All bony processes were inspected and padded. The previous lumbar incision was identified and marked and prepped and draped in the usual sterile surgical fashion. A time-out was completed per protocol. The patient received antibiotics within 1 hour of incision. The incision was infiltrated with Marcaine with epinephrine and taken down with the scalpel blade. Using monopolar, the incision was taken down the midline through the lumbodorsal fascia, and a subperiosteal dissection carried out at L3 with care to preserve the midline structures at L4-5 from the prior decompression at which point we identified the lateral hardware at the L4-5 level and then continued with a subperiosteal dissection down at S1 laterally. Deep retractors were placed to maintain our exposure. We attached the 3D Stealth navigation clamp to the spinous process of L3 and completed a 3D Stealth navigation spin. Using 3D navigation, we placed the transport pilot holes for the bilateral pedicle screws in L3 and S1. The holes were manually palpated with no evidence of any cortical breaches. We then tapped and placed 6.5 x 55 mm screws bilaterally in L3 and 6.5 x 50 mm screw on the left at S1, and 6.5 x 55 mm screw on the right S1 from [employer] Solera 4.75 system. We then removed the sequential cap screws from the L4 and L5 levels as well as the bilateral rods. We then used the distraction device and noted that he was solidly fused upon further exploration. At this point, we opted to leave those pedicle screws in place since he was well fused. We brought the microscope into the field to assist with microscopic dissection and to maintain illumination and magnification. Using a combination of bur tip on the drill bit, Kerrison punches and Leksell rongeur, we completed a decompressive laminectomy, L3-L4 with bilateral mesial facetectomies. We completed an aggressive facetectomy on the right side. L3-4 and distracted the disc space. We completed a right-sided L3-4 diskectomy and prepared the cartilaginous endplates. We measured the interbody space and placed a 7 x 28 mm titanium PEEK elevate cage filled with morselized autograft and allograft anteriorly and toward the midline. We packed additional morcellized autograft in the disk space for the interbody fusion. We moved down to L5-S1 level where we removed the spinous process and completed right side L5-S1 facetectomy and completed a right-sided L5-S1 diskectomy and prepared the cartilaginous endplates. We measured the interbody space and placed an 8 x 28 mm titanium PEEK Elevate cage filled with morselized autograft and allograft anteriorly and toward the midline. We packed additional morselized autograft in the disk space for interbody fusion. We let down distraction, decorticated bone in the left side between L3-L4 and L5-S1. The wound was irrigated copiously with bacitracin irrigation. We placed 2 lordotic rods in the heads of the screws between L3 and S1 and secured them down with cap screws, which were then tightened to the build and deployment engineer 's setting. We injected preservative-free intrathecal narcotics. Drains left in subfascial space. The wound was then closed in multiple layers using Vicryl sutures for the deep layers and Dermabond for the skin. The patient's wounds were dressed sterilely. He was flipped supine onto the transfer cart, where he was awakened, extubated, and taken to recovery room in stable condition. There were no complications and no noted changes on neuromonitoring throughout the procedure. COMPLICATIONS: None. /[id number]/MODL MTDD
[2018-09-18] MEDS: ACETAMINOPHEN 500 MG TAB PO SCH ×3 (00:44→12:09)
[2018-09-18] MEDS: ceFAZolin 2 GM/DEXTROSE 100 ML IV SCH (04:01)
--- NOTE | 2018-09-18 07:54 | NEUSURGPN ---
Date of Surgery: 09/17/18 Post Op Day: 1 Assessment/Plan: 68 yo male s/p exploration and revision of hardware, TLIF at L3/4 and L5/S1, PSF L3-S1 - neuro stable - pain control - wear brace when out of bed - DALILA drain x 1, will plan to remove tomorrow - postop L-spine x-rays pending - PT/OT - please call neurosurgery with any changes in neuro status/exam Discussed with Dr. Reyes. Subjective: Pain controlled. No LE symptoms. Objective: Awake. Alert. PERRL. EOMI Facial expression symmetrical Muscle strength 5/5 Following commands Catheter Insertion Date: 09/17/18 - Physician Discussed Patient with Dr.: Reyes Neurosurgery Physical Exam - Vitals, I&O, Labs I and O 09/17/18 09/18/18 09/19/18 05:59 05:59 05:59 Intake Total 2626 Output Total 1425 Balance 1201 Weight 97.976 kg Intake: Oral (ml) 310 IV Intake (ml) 2316 Output: Urine (ml) 1150 Catheter 1150 Estimated Blood Loss (ml) 150 DALILA Drain Output (ml) 125 #1 Left Back Arslan 125 Solis Vital Signs Temp Pulse Resp BP Pulse Ox 36.7 C 60 16 133/67 H 95 09/18/18 04:02 09/18/18 04:02 09/18/18 04:02 09/18/18 04:02 09/18/18 04:02 ICD10 Worksheet Patient Problems: Problems Problem Status Onset Back pain Acute Lumbar spondylosis Acute
[2018-09-18] MEDS: CHOLECALCIFEROL VIT D3 1,000 UNITS TAB PO SCH (08:28)
[2018-09-18] MEDS: METHOCARBAMOL 750 MG TAB PO PRN ×3 (08:29→20:29)
[2018-09-18] MEDS: ASCORBIC ACID 500 MG TAB PO SCH (08:30)
[2018-09-18] MEDS: SENNOSIDES/DOCUSATE SODIUM TAB PO SCH ×2 (08:33→20:31)
[2018-09-18] MEDS: buPROPion SR 150 MG TAB PO SCH ×2 (08:33→20:32)
[2018-09-18] MEDS: FAMOTIDINE 20 MG TAB PO SCH ×2 (08:33→20:32)
[2018-09-18] MEDS: ATENOLOL 50 MG TAB PO SCH (11:42)
[2018-09-18] MEDS: LISINOPRIL 20 MG TAB PO SCH (11:43)
--- NOTE | 2018-09-18 16:05 | ASMTCMCOM ---
CM Note CM Note Notes: Pt had planned surgery for lumbar stenosis, resides with spouse. OT eval pending they have not been able to eval pt today, PT rec home. CM to follow pt progress. D/c plan of care: Likely independent, OT eval pending Date Signed: 09/18/2018 04:05 PM Electronically Signed By:DENIA Vidal
[2018-09-18] MEDS: HYDROCODONE/APAP 10/325 TAB PO PRN (16:20)
[2018-09-18] MEDS: ENOXAPARIN 40 MG/0.4 ML SYR SC SCH (16:27)
[2018-09-18] MEDS ORDERED: ALBUTEROL 3 ML DEYVIAL IH PRN (16:45)
[2018-09-18] MEDS: HYDROmorphONE/DILAUDID 2 MG TAB PO PRN ×2 (18:05→20:34)
[2018-09-18] MEDS: ATORVASTATIN CALCIUM 20 MG TAB PO SCH (20:29)
[2018-09-18] MEDS ORDERED: ALBUTEROL 3 ML DEYVIAL IH SCH (21:00)
[2018-09-19] MEDS: HYDROmorphONE/DILAUDID 2 MG TAB PO PRN ×6 (00:19→21:23)
[2018-09-19] MEDS: CHOLECALCIFEROL VIT D3 1,000 UNITS TAB PO SCH (09:19)
[2018-09-19] MEDS: buPROPion SR 150 MG TAB PO SCH ×2 (09:19→21:23)
[2018-09-19] MEDS: LISINOPRIL 20 MG TAB PO SCH (09:20)
[2018-09-19] MEDS: FAMOTIDINE 20 MG TAB PO SCH ×2 (09:20→21:23)
[2018-09-19] MEDS: ATENOLOL 50 MG TAB PO SCH (09:20)
[2018-09-19] MEDS: METHOCARBAMOL 750 MG TAB PO PRN (09:20)
[2018-09-19] MEDS: SENNOSIDES/DOCUSATE SODIUM TAB PO SCH ×2 (09:20→21:23)
[2018-09-19] MEDS: ASCORBIC ACID 500 MG TAB PO SCH (09:20)
[2018-09-19] MEDS: ENOXAPARIN 40 MG/0.4 ML SYR SC SCH (09:20)
--- NOTE | 2018-09-19 09:55 | NEUSURGPN ---
Date of Surgery: 09/17/18 Post Op Day: 2 Assessment/Plan: Assessment: 68 yo male s/p exploration and revision of hardware, TLIF at L3/4 and L5/S1, PSF L3-S1 POD #2 Plan: -s/p TLIF L3-S1: doing well -DALILA in place-will remove today -neuro stable -pain control-doing well with current plan -wear brace when out of bed-tolerating well -postop L-spine x-rays look good -PT/OT-CPM -please call neurosurgery with any changes in neuro status/exam -discussed with Dr. Reyes -pt understands and agrees Subjective: Awake and alert. NAD. Eating/drinking and voiding. No f/c/n/v/d. No omalley/neck/ chest/abd or gu complaints. Objective: AAO x 3, PERRLA/EOMI no droop CN 2-12 grossly intact +lt touch 5/5 BUE/BLE = CDI DALILA in place-remove today (order in place) Neuro Check Frequency: per routine Urinary Catheter in Place: No Catheter Insertion Date: 09/17/18 - Physician Discussed Patient with : Eric Neurosurgery Physical Exam - Vitals, I&O, Labs I and O 09/18/18 09/19/18 09/20/18 05:59 05:59 05:59 Intake Total 2626 Output Total 1425 1765 60 Balance 1201 -1765 -60 Weight 97.976 kg Intake: Oral (ml) 310 IV Intake (ml) 2316 Output: Urine (ml) 1150 1650 Catheter 1150 1000 Urinal 650 Estimated Blood Loss (ml) 150 DALILA Drain Output (ml) 125 115 60 #1 Left Back Arslan 125 115 60 Solis Other: Number of Voids Toilet 1 1 Bladder Scan Volume (ml) Urinal 530 Vital Signs Temp Pulse Resp BP Pulse Ox 36.5 C 67 16 134/75 H 91 L 09/19/18 08:00 09/19/18 09:20 09/19/18 08:00 09/19/18 09:20 09/19/18 08:00 ICD10 Worksheet Patient Problems: Problems Problem Status Onset Back pain Acute Lumbar spondylosis Acute
[2018-09-19] MEDS: HYDROCODONE/APAP 10/325 TAB PO PRN (16:21)
[2018-09-19] MEDS: ATORVASTATIN CALCIUM 20 MG TAB PO SCH (21:23)
[2018-09-20] MEDS: HYDROmorphONE/DILAUDID 2 MG TAB PO PRN ×6 (01:16→22:15)
--- NOTE | 2018-09-20 06:16 | NEUSURGPN ---
Date of Surgery: 09/17/18 Post Op Day: 3 Assessment/Plan: Assessment: 68 yo male s/p exploration and revision of hardware, TLIF at L3/4 and L5/S1, PSF L3-S1 POD #3 Plan: -s/p TLIF L3-S1: doing well -DALILA removed already-site looks good -CDI-dressing taken down -neuro stable -pain control-doing well with current plan -wear brace when out of bed-tolerating well -postop L-spine x-rays look good -PT/OT-CPM -please call neurosurgery with any changes in neuro status/exam -plan for dc today or tomorrow if ok with family and home set up for him -discussed with Dr. Reyes -pt understands and agrees Subjective: Awake and alert. NAD. Eating/drinking and voiding. No f/c/n/v/d. Objective: AAO x 3, PERRLA/EOMI no droop CN 2-12 grossly intact +lt touch 5/5 BUE/BLE = CDI-dressing taken down DALILA site looks good Neuro Check Frequency: per routine Urinary Catheter in Place: No Catheter Insertion Date: 09/17/18 - Physician Discussed Patient with : Eric Neurosurgery Physical Exam - Vitals, I&O, Labs I and O 09/19/18 09/20/18 09/21/18 05:59 05:59 05:59 Intake Total 350 Output Total 1765 960 Balance -1765 -610 Intake: Oral (ml) 350 Output: Urine (ml) 1650 900 Catheter 1000 Toilet 200 Urinal 650 700 DALILA Drain Output (ml) 115 60 #1 Left Back Arslan 115 60 Solis Other: Intake Quantity Yes Sufficient Number of Voids Toilet 1 1 Urinal 2 Bladder Scan Volume (ml) Urinal 530 Vital Signs Temp Pulse Resp BP Pulse Ox 37.5 C 67 16 139/66 H 93 09/19/18 23:13 09/19/18 23:13 09/19/18 23:13 09/19/18 23:13 09/19/18 23:13 ICD10 Worksheet Patient Problems: Problems Problem Status Onset Back pain Acute Lumbar spondylosis Acute
--- NOTE | 2018-09-20 06:30 | PDIAF ---
- Diagnosis Diagnosis: s/p L3-S1 fusion Code Status: Full Code - Medication Management Cascara Bark Cutter Antibiotics: none Discharge Medications: electronically signed and located in the Home Medication List. PICC Care - Routine: N/A - Orders Services needed: Home Care, Registered Nurse, Physical Therapy, Occupational Therapy Home Care Face to Face: I certify that this patient was under my care and that I had the required urpo-ou-xlse encounter meeting the encounter requirements on the discharge day. My findings support the fact that the patient is homebound as defined in Home Care Face to Face Continued: CMS Chapter 7 Medicare Benefits Manual 30.1.1 , The condition of the patient is such that there exists a normal inability to leave home and consequently, leaving home would require a considerable and taxing effort. Diet Recommendation: no restrictions on diet Diet Texture: Regular Texture Diet Additional Instructions: -take medications as directed -call with any questions or concerns -pt understands and agrees -see Dr Reyes's team in 2-3 weeks for a recheck -wear brace as directed - Follow Up Care Current Providers and Referrals: Miri Tolliver MD [Primary Care Provider] - Juan Carlos Reyes MD [Medical Doctor] - (follow up in 2-3 weeks)
[2018-09-20] MEDS: ONDANSETRON DISINTEGRATING 4 MG TAB PO PRN (07:13)
[2018-09-20] MEDS: CHOLECALCIFEROL VIT D3 1,000 UNITS TAB PO SCH (09:43)
[2018-09-20] MEDS: FAMOTIDINE 20 MG TAB PO SCH ×2 (09:43→22:15)
[2018-09-20] MEDS: buPROPion SR 150 MG TAB PO SCH ×2 (09:43→22:15)
[2018-09-20] MEDS: SENNOSIDES/DOCUSATE SODIUM TAB PO SCH ×2 (09:43→22:16)
[2018-09-20] MEDS: ATENOLOL 50 MG TAB PO SCH (09:43)
[2018-09-20] MEDS: LISINOPRIL 20 MG TAB PO SCH (09:43)
[2018-09-20] MEDS: ASCORBIC ACID 500 MG TAB PO SCH (09:43)
[2018-09-20] MEDS: ENOXAPARIN 40 MG/0.4 ML SYR SC SCH (09:44)
[2018-09-20] MEDS: ATORVASTATIN CALCIUM 20 MG TAB PO SCH (22:15)
[2018-09-21] MEDS: HYDROmorphONE/DILAUDID 2 MG TAB PO PRN ×3 (03:06→11:57)
--- NOTE | 2018-09-21 07:52 | NEUSURGPN ---
Assessment/Plan: Assessment/Plan: Assessment: 68 yo male s/p exploration and revision of hardware, TLIF at L3/4 and L5/S1, PSF L3-S1 POD #4 Plan: -neuro stable -pain control-doing well with current plan -wear brace when out of bed-tolerating well -postop L-spine x-rays look good -PT/OT-CPM -please call neurosurgery with any changes in neuro status/exam -discussed with Dr. Reyes Subjective: low back pain tolerable with medications Objective: AAO x 3, PERRLA/EOMI no droop CN 2-12 grossly intact +lt touch 5/5 BUE/BLE = Incision c/d/i Catheter Insertion Date: 09/17/18 - Physician Discussed Patient with : Eric Neurosurgery Physical Exam - Vitals, I&O, Labs I and O 09/20/18 09/21/18 09/22/18 05:59 05:59 05:59 Intake Total 350 680 Output Total 960 750 Balance -610 -70 Intake: Oral (ml) 350 680 Output: Urine (ml) 900 750 Toilet 200 Urinal 700 750 DALILA Drain Output (ml) 60 #1 Left Back Arslan 60 [employer]is Other: Intake Quantity Yes Yes Sufficient Number of Voids Toilet 1 1 Urinal 2 1 Number of Stools Toilet 1 Vital Signs Temp Pulse Resp BP Pulse Ox 37.1 C 72 18 136/72 H 93 09/20/18 23:09 09/20/18 23:09 09/20/18 23:09 09/20/18 23:09 09/20/18 23:09 ICD10 Worksheet Patient Problems: Problems Problem Status Onset Back pain Acute Lumbar spondylosis Acute
[2018-09-21] MEDS: ASCORBIC ACID 500 MG TAB PO SCH (08:08)
[2018-09-21] MEDS: FAMOTIDINE 20 MG TAB PO SCH (08:08)
[2018-09-21] MEDS: SENNOSIDES/DOCUSATE SODIUM TAB PO SCH (08:08)
[2018-09-21] MEDS: buPROPion SR 150 MG TAB PO SCH (08:09)
[2018-09-21] MEDS: CHOLECALCIFEROL VIT D3 1,000 UNITS TAB PO SCH (08:09)
[2018-09-21] MEDS: ATENOLOL 50 MG TAB PO SCH (08:14)
[2018-09-21] MEDS: ENOXAPARIN 40 MG/0.4 ML SYR SC SCH (08:15)
[2018-09-21] MEDS: LISINOPRIL 20 MG TAB PO SCH (08:15)
[2018-09-21 08:17] VITALS: BP 136/62
--- NOTE | 2018-09-21 14:19 | ASMTLACE ---
LACE Length of stay for Answers: 4-6 days current admission Acuity / Level of Answers: Yes Care: Did the patient have an inpatient admission? Comorbidities - select Answers: Opioid dependence all that apply / Chronic pain Other Notes: HTN # of Emergency department Answers: 0 visits in the last 6 months Social determinants Answers: Mental health diagnosis (anxiety, depression, pers onality disorders, etc.) Score: 15 Date Signed: 09/21/2018 02:18 PM Electronically Signed By:DENIA Vidal
--- NOTE | 2018-09-21 14:21 | ASMTCMCOM ---
CM Note CM Note Notes: Pt medically stable for d/c. Therapies continue to clear pt for home. No CM d/c needs identified. Date Signed: 09/21/2018 02:19 PM Electronically Signed By:DENIA Vidal
== END 2018-09-21 12:02 | disposition home or self-care (01) | DRG 455 ==
LOC: F1N 09:36 → F3N 17:27
PROVIDERS: ADMIT Neurological Surgery; ATTEND Neurological Surgery
DX: M48.062 Spinal stenosis, lumbar region with neurogenic claudication (principal); M43.17 Spondylolisthesis, lumbosacral region; M51.26 Other intervertebral disc displacement, lumbar region; M51.36 Other intervertebral disc degeneration, lumbar region; M51.16 Intervertebral disc disorders with radiculopathy, lumbar region; Z98.1 Arthrodesis status; G25.0 Essential tremor; E78.5 Hyperlipidemia, unspecified; I10 Essential (primary) hypertension; G47.33 Obstructive sleep apnea (adult) (pediatric); F41.9 Anxiety disorder, unspecified; Z87.891 Personal history of nicotine dependence
CPT/HCPCS: 97116-GP; 97161-GP; 97165-GO; 97530-GP; 97535-GO; C1713; J0690; J1100; J1650; J2001; J2250; J2270; J2274; J2370; J2405; J2704; J2780

== ENCOUNTER → 2018-11-10 | Outpatient (CLI) | payer OTHER | LOC: FIMAGING 12:57 ==

== ENCOUNTER → 2018-11-13 | Outpatient (CLI) | payer OTHER | LOC: BMCIMAGING 14:07 ==